=== PATIENT | male | born 1970 | race Caucasian/White ===

== ENCOUNTER 2025-03-17 11:13 | Outpatient (OUT) | payer OTHER, SELFPAY ==
--- OUTSIDE RECORDS SUMMARY | 2025-03-03 20:15 | XMS_ITS | Encounter Summary ---
Author Organization [facility] tem Address [id number] [address] [place] [address] Care Team Providers Care Industrial Electrical Engineer Name Role Phone Jo-Ann Loera MD Primary Care Provider [phone] Reason for Visit * ReasonCommentsWound Check * Auth/Cert (Routine)SpecialtyDiagnoses / ProceduresReferred By ContactReferred To Contact [facility] [address] [place] [address] Phone: tel: fax: Referral IDStatusReasonStart DateExpiration DateVisits RequestedVisits [id number] Encounter Details DateTypeDepartmentCare Team (Latest Contact Info)Pomdggirgxs75/05/2025 8:15 PM EST - 03/03/2025 8:38 PM ESTEmergency [facility] [address] [place] [address] Collin Cevallos, DO [address] [place] [address] [phone] Skin abrasion (Primary Dx) Discharge Disposition: Home Social History Tobacco UseTypesPacks/DayYears UsedDateSmoking Tobacco: NeverSmokeless Tobacco: NeverAlcohol UseStandard Drinks/WeekCommentsYes0 (1 standard drink = 0.6 oz pure alcohol)x3 a weekChildcareAnswerDate JlagitbeFrbsiwoarBrhmcnz65/12/2019 EmploymentAnswerDate VwculhcjUjganvncbwWolmaqa96/12/2019Hunger ScreeningAnswer Date RecordedWithin the past 12 months we worried whether our food would run out before we got money to buy more.Never True03/03/2025Within the past 12 months the food we bought just didn't last and we didn't have money to get more.Never True03/03/2025Purpose - LifeAnswerDate RecordedPurpose and direction in life Lpmrout0104/12/2020ex and Gender InformationValueDate RecordedSex Assigned at XowobFltq00/11/2021 2:00 PM EDTLegal TagSlls1511/02/2014 11:31 AM EDTGender NabfuhfmDpkw39/11/2021 2:00 PM EDTSexual KiaoaxpqserLgphwnqr36/11/2021 2:00 PM EDTdocumented as of this encounter Last Filed Vital Signs Vital SignReadingTime TakenCommentsBlood Rtvuhbql192/ 8:30 PM EST Wyicv686703/03/2025 8:19 PM KBBNkbqyzxesuz06.8 ??C (98.3 ??F)03/03/2025 8:19 PM ESTRespiratory Goiq629105/04/2024 8:19 PM ESTOxygen Inzsvbsbud07%03/03/2025 8:19 PM ESTInhaled Oxygen Concentration--Fuxndr79.4 kg (206 lb)03/03/2025 8:19 PM EST Uuzugo121.3 cm (5' 11 )03/03/2025 8:19 PM ESTBody Mass Index28.7303/03/2025 8:19 PM ESTdocumented in this encounter Functional Status * Vital SignsQuestionAnswerDate of OgjvphmceqXoiuopYK627/7803/03/2025 8:30 PM Clarke Stoddard, MARCELINA * ED Hunger ScreeningQuestionAnswerDate of AssessmentAuthorWithin the past 12 months the food we bought just didn't last and we didn't have money to get more.Never True03/03/2025 8:21 PM Brittany Tilley RNWithin the past 12 months we worried whether our food would run out before we got money to buy more.Never True03/03/2025 8:21 PM Brittany Tilley RN * BEE (kcal)AnswerDate of VcbovgflybVejsev056619/05/2025 8:19 PM Brittany Tilley RN * Pain AssessmentQuestionAnswerDate of AssessmentAuthorPain DescriptorsBurning 03/03/2025 8:19 PM Brittany Tilley RNPain DurationConstant/continuous 03/03/2025 8:19 PM Brittany Tilely RNPain TypeAcute pain03/03/2025 8:19 PM Brittany Tilley RNPain Assessment0-10105/04/2024 8:19 PM Brittany Tilley RN Pain Tyzrp72805/04/2024 8:19 PM Brittany Tilley RN * [place] Coma ScaleQuestionAnswerDate of AssessmentAuthorEye Umeqzke083/05/2025 8:20 PM Brittany Tilley RNBest Motor Wnjnumqk947/05/2025 8:20 PM Brittany Tilley RNBest Verbal Wtrnhmmg493/05/2025 8:20 PM Brittany Tilley RNGlasgow Coma Scale Mmauf4329/05/2025 8:20 PM Brittany Tilley RN * Patient ObservationQuestionAnswerDate of TiolfmtlsxLhwrwqClvpqh0834/05/2025 8:19 PM Brittany Tilley RNWeight329603/03/2025 8:19 PM Brittany Tilley RN * BSA (Calculated - sq m)AnswerDate of AssessmentAuthor2.16105/04/2024 8:19 PM Brittany Tilley RN * BMI (Calculated)AnswerDate of QkzmccsttbFxzwfy05.7105/04/2024 8:19 PM Brittany Tilley RN * Height and WeightQuestionAnswerDate of AssessmentAutLima City Hospitalt MethodStated 03/03/2025 8:19 PM Brittany Tilley RN * Abuse Indicator ScreeningQuestionAnswerDate of AssessmentAuthorSafe in HomeYes 03/03/2025 8:21 PM Brittany Tilley RNDo you feel safe in your relationship(s)?Yes03/03/2025 8:21 PM Brittany Tilley RNAre you in immediate danger?No03/03/2025 8:21 PM Brittany Tilley RN * Harm Risk AssessmentQuestionAnswerDate of AssessmentAuthorAre you having thoughts of homicide or causing harm to others?No03/03/2025 8:21 PM Brittany Tilley RN * Blood HistoryQuestionAnswerDate of AssessmentAuthorHave you had a blood transfusion?No03/03/2025 8:21 PM Brittany Tilley RNWould you accept a blood transfusion in a life-threatening situation?Yes03/03/2025 8:21 PM Brittany Tilley RN * Fall Prevention Screening 18-64 yearsQuestionAnswerDate of AssessmentAuthorIs Patient Alert, Oriented and Able to Follow JjxytijaRoh69/05/2025 8:21 PM Brittany Rand RNInterventionsNonslip Footwear;Bed in Low Position;Call Light Within Reach03/03/2025 8:21 PM Brittany Tilley RNFall Prevention ScreenDoes Not Apply to Patient - Screening Osugbnhf14/05/2025 8:21 PM Brittany Tilley RN * Vital SignsQuestionAnswerDate of KhbbbkoglwXjrnabCfpq13. 8:19 PM Brittany Tilley RNTemp wydKuhk2803/03/2025 8:19 PM Brittany Tilley ESXlgix31 03/03/2025 8:19 PM Brittany Tilley RNResp18105/04/2024 8:19 PM Brittany Tilley DIRbG83047/05/2025 8:19 PM Brittany Tilley RNHeart Rate SourcePulse Ox03/03/2025 8:19 PM Brittany Tilley RNBP LocationLeft arm03/03/2025 8:19 PM ESTLease, Brittany, RNBP EyohpuAejevpzyc23/05/2025 8:19 PM Brittany Tilley RN MAP (mmHg)9703/03/2025 8:19 PM Brittany Tilley RNPatient PositionSitting 03/03/2025 8:19 PM Brittany Tilley RN * Oxygen TherapyQuestionAnswerDate of AssessmentAuthorO2 DeviceNone (Room air) 03/03/2025 8:19 PM Brittany Tilley RN * Adult Sepsis RiskQuestionAnswerDate of AssessmentAuthorSIRS Criteria0 03/03/2025 8:20 PM ESTBackground, ClindocRisk of Sepsis v.21. 8:40 PM ESTBackground, Clindoc * AirwayQuestionAnswerDate of AssessmentAuthorTrachea AssessmentTrachea midline 03/03/2025 8:20 PM Brittany Tilley RNAirwayPatent105/04/2024 8:20 PM Brittany Rand RNInterventions to Clear AirwayNone/Not Nmlwswlvai14/05/2025 8:20 PM Brittany Tilley RNAirway (WDL)X105/04/2024 8:20 PM Brittany Tilley RN * BreathingQuestionAnswerDate of AssessmentAuthorRespiratory PatternRegular 03/03/2025 8:20 PM Brittany Tilley RNChest AssessmentChest expansion lzjqurtqvhn92/05/2025 8:20 PM Brittany Tilley RNBreathing (WDL)X105/04/2024 8:20 PM Brittany Tilley RN * CirculationQuestionAnswerDate of AssessmentAuthorSkin VpnfbWmmo81/05/2025 8:20 PM Brittany Tilley RNCirculation (WDL)X105/04/2024 8:20 PM Brittany Tilley RN * DisabilityQuestionAnswerDate of AssessmentAuthorDisability (WDL)WDL105/04/2024 8:20 PM Brittany Tilley RN * Family/Insole And Outsole Preparer NotifiedQuestionAnswerDate of AssessmentAuthor Family/Insole And Outsole Preparer notified of Emergency Department Admission?Family txchbvh9103/03/2025 8:21 PM Brittany Tilley RN * Weight in (lb) to have BMI = 25AnswerDate of TqntrrojeuEvtzil640.9105/04/2024 8:19 PM Brittany Tilley RN * [place] Suicide BehaviorQuestionAnswerDate of AssessmentAuthor6. Have you ever done anything, started to do anything, or prepared to do anything to end your life?No03/03/2025 8:21 PM Brittany Tilley RN * Suicidal Ideation (Last Month)QuestionAnswerDate of AssessmentAuthor1. In the last month have you wished you were or wished you could go to sleep and not wake up?No03/03/2025 8:21 PM Brittany Tilley RN2. In the last month have you actually had any thoughts of killing yourself?No03/03/2025 8:21 PM Brittany Rand RNAble to assess?Yes03/03/2025 8:21 PM Brittany Tilley RN * Skin Color/ConditionQuestionAnswerDate of AssessmentAuthorSkin IntegrityOther (Comment)03/03/2025 8:25 PM Clarke Stoddard RNSkin Color/Condition (WDL)X 03/03/2025 8:25 PM Clarke Stoddard RN * Vitals TimerQuestionAnswerDate of AssessmentAutrRestart Vitals TimerYes 03/03/2025 8:19 PM Brittany Tilley RN * TB ScreeningQuestionAnswerDate of AssessmentAuthorPatient has prolonged cough? No03/03/2025 8:21 PM Brittany Tilley RNPatient has bloody cough?No03/03/2025 8:21 PM Brittany Tilley RNPatient has fever?No03/03/2025 8:21 PM Brittany Tilley RNPatient has night sweats?No03/03/2025 8:21 PM Brittany Tilley RN Patient has weight loss?No03/03/2025 8:21 PM Brittany Tilley RNPatient has positive PPD?No03/03/2025 8:21 PM Brittany Tilley RN * [place] Suicide Risk LevelAnswerDate of AssessmentAuthorNot at Suicide Risk 03/03/2025 8:21 PM Brittany Tilley RN * Vital SignsQuestionAnswerDate of KizpusznoeFtrhlyXM066/7803/03/2025 8:30 PM Clarke Stoddard RN * BEE (kcal)AnswerDate of WrxsyxppujPgcacy886547/05/2025 8:19 PM Brittany Tilley RN * Patient ObservationQuestionAnswerDate of EqqfbsldtxYofvrnLwbigt0373/05/2025 8:19 PM Brittany Tilley RNWeight329603/03/2025 8:19 PM Brittany Tilley RN * BSA (Calculated - sq m)AnswerDate of AssessmentAuthor2.16105/04/2024 8:19 PM Brittany Tilley RN * BMI (Calculated)AnswerDate of MvvrpiskssRjbojk88.7105/04/2024 8:19 PM Brittany Tilley RN * Height and WeightQuestionAnswerDate of AssessmentAutLima City Hospitalt MethodStated 03/03/2025 8:19 PM Brittany Tilley RN * Vital SignsQuestionAnswerDate of OcwvbwndkhLituncVivr58.312 8:19 PM Brittany Tilley RNTemp pqkMjkf6003/03/2025 8:19 PM Brittany Tilley TVJioki59 03/03/2025 8:19 PM Brittany Tilley RNResp18105/04/2024 8:19 PM Brittany Tilley RNSpO296105/04/2024 8:19 PM Brittany Tilley RNHeart Rate SourcePulse Ox03/03/2025 8:19 PM Brittany Tilley RNBP LocationLeft arm03/03/2025 8:19 PM Brittany Tilley RNBP XgozdhJeeduhnfl40/05/2025 8:19 PM Brittany Tilley RNMAP (mmHg)9703/03/2025 8:19 PM Brittany Tilley RNPatient PositionSitting 03/03/2025 8:19 PM Brittany Tilley RN * Weight in (lb) to have BMI = 25AnswerDate of PsjgirogpcFnxevo678.912 8:19 PM Brittany Tilley RN documented as of this encounter Mental Status * Vital SignsQuestionAnswerEntry AgnnPeeequFB526/7803/03/2025 8:30 PM Clarke Stoddard RN * Pain AssessmentQuestionAnswerEntry DateAuthorPain FabjgtwrziqPdemfmv93/05/2025 8:19 PM Brittany Tilley RNPain DurationConstant/bnxkrsrxqa20/05/2025 8:19 PM Brittany Tilley RNPain Assessment0-10105/04/2024 8:19 PM Brittany Tilley RN Pain Byfmg74605/04/2024 8:19 PM Brittany Tilley RN * [place] Coma ScaleQuestionAnswerEntry DateAuthorEye Jzdhrbh518/05/2025 8:20 PM Brittany Tilley RNBest Motor Pldbnkfg895/05/2025 8:20 PM Brittany Tilley RNBest Verbal Ulkicxks428/05/2025 8:20 PM Brittany Tilley RNGlasgow Coma Scale Nkhdv4495/05/2025 8:20 PM Brittany Tilley RN * Vital SignsQuestionAnswerEntry PuhuGghollNzzq17.312 8:19 PM Brittany Tilley RNTemp zamNbgs5103/03/2025 8:19 PM Brittany Tilley LVXtuer3106/05/2025 8:19 PM Brittany Tilley HQBfjr3434/05/2025 8:19 PM Brittany Tilley, RNSpO2 9603/03/2025 8:19 PM Brittany Tilley RNHeart Rate SourcePulse Ox03/03/2025 8:19 PM Brittany Tilley RNBP LocationLeft arm03/03/2025 8:19 PM Brittany Tilley RNBP VyopyjCusulgbhz64/05/2025 8:19 PM Brittany Tilley RNMAP (mmHg) 9703/03/2025 8:19 PM ESTLease, Brittany, RNPatient RhopvxkzXlbqjqq40/05/2025 8:19 PM Brittany Tilley RN * Oxygen TherapyQuestionAnswerEntry DateAuthorO2 DeviceNone (Room air)03/03/2025 8:19 PM Brittany Tilley RN * BreathingQuestionAnswerEntry DateAuthorRespiratory ZbvmqupLxktbsb25/05/2025 8:20 PM Brittany Tilley RNChest AssessmentChest expansion symmetrical 03/03/2025 8:20 PM Brittany Tilley RN * CirculationQuestionAnswerEntry DateAuthorSkin VnnmvOofb21/05/2025 8:20 PM EST Brittany Garcia RN documented in this encounter Discharge Instructions * Discharge Instructions* Collin Cevallos DO - 03/03/2025 8:30 PM EST Return to ER if symptoms worsen or change * Attachments The following attachments cannot be sent through Care Everywhere. * Taking care of cuts, scrapes, and puncture wounds (Setswana) documented in this encounter Medications at Time of Discharge MedicationSigDispense QuantityRefillsLast FilledStart DateEnd Date ascorbic acid, vitamin C, (VITAMIN C) 1000 mg tablet Take 1 tablet (1,000 mg total) by mouth in the morning. baclofen 5 mg tablet Take 10 mg by mouth nightly.09/12/2021 celecoxib (CeleBREX) 200 mg capsule Take 1 capsule (200 mg total) by mouth in the morning and 1 capsule (200 mg total) before bedtime. lisinopriL (PRINIVIL,ZESTRIL) 20 mg tablet Take 1 tablet (20 mg total) by mouth before bedtime. zwurvzjl-ttlm-EM-calcium &mins (THERAGRAN-M) 9 mg iron-400 mcg tablet Take 1 tablet by mouth in the morning. ocrelizumab (OCREVUS) 30 mg/mL injection Infuse into a venous catheter every 6 (six) months. rosuvastatin (CRESTOR) 10 mg tablet Take 1 tablet (10 mg total) by mouth in the morning. zinc gluconate 50 mg tablet Take 2 tablets (100 mg total) by mouth in the morning. CEPHalexin (KEFLEX) 500 mg capsule Take 1 capsule (500 mg total) by mouth 3 (three) times a day for 10 days. 30 capsule 512/documented as of this encounter ED Notes * Collin Orlando Mart, - 03/03/2025 8:20 PM EST Images from the original note were not included. [facility] - EMERGENCY Pt Name: Benjamin Renteria II Birthdate: 1970 Chief Complaint: Chief Complaint Patient presents with Wound Check History of Present Illness: This is a 55-year-old male who had right shoulder surgery and he took the bandage off of the shoulder wound and now he has irritation from the tape/dressing. Otherwise the patient has been doing pretty well. He does have some loose stools with the GI complaint. Past Medical History: Past Medical History: Diagnosis Date Allergic Cat dander Arthritis Deviated septum First degree AV block Headache Heart murmur as a child Hyperlipidemia Hypertension Inguinal hernia Migraine Cluster idiopathic migraine MS (multiple sclerosis) 11/2020 Multiple sclerosis b/l leg weakness, cramping in right hand Multiple thyroid nodules Subconjunctival hemorrhage Tendonitis Varicella Visual impairment reading glasses Past Surgical History: Past Surgical History: Procedure Laterality Date ARTHROSCOPIC REPAIR ROTATOR CUFF SHOULDER Right 02/28/2025 Performed by Dylan Terrazas Jr., DO at [facility] ARTHROSCOPIC SUBACROMIAL DECOMPRESSION SHOULDER Right 02/28/2025 Performed by Dylan Terrazas Jr., DO at [facility] ARTHROSCOPY REPAIR ROTATOR CUFF SHOULDER Right 08/25/2019 Performed by Dylan Terrazas Jr., DO at [facility] ARTHROSCOPY SHOULDER Right 08/25/2019 Performed by Dylan Terrazas Jr., DO at [facility] COLONOSCOPY [facility] REPAIR HERNIA INGUINAL Left 12/24/2021 Performed by Collin Martínez DO at [facility] EXCISION LESION LOWER EXTREMITY Left 12/24/2021 Performed by Collin Martínez DO at [facility] HERNIA REPAIR HYDROCELECTOMY ASPIRATION LEFT INGUINAL SEROMA Left 04/22/2022 Performed by Collin Martínez DO at [facility] MOLE REMOVAL SEPTOPLASTY SLAP LESION REPAIR SHOULDER Right 08/25/2019 Performed by Dylan Terrazas Jr., DO at [facility] SUBACROMIAL DECOMPRESSION (SAD) ARTHROSCOPY CUFF REPAIR SHOULDER POSSIBLE FLAP Right 08/25/2019 Performed by Dylan Terrazas Jr., DO at [facility] VASECTOMY WISDOM TOOTH EXTRACTION Family History: Family History Problem Relation Age of Onset Cancer Mother melanoma, bile duct, liver Diabetes Mother Heart disease Mother Hypertension Mother Cancer Father bladder Hypertension Father Stroke Maternal Grandmother Heart disease Maternal Grandfather Cancer Paternal Grandmother breast Heart disease Paternal Grandmother Breast cancer Paternal Grandmother Hypertension Paternal Grandfather Stroke Paternal Grandfather Breast cancer Paternal Aunt Colon cancer Maternal Uncle Depression Daughter Social History: Social History Socioeconomic History Marital status: Tobacco Use Smoking status: Never Smokeless tobacco: Never Vaping Use Vaping status: Never Used Substance and Sexual Activity Alcohol use: Yes Comment: x3 a week Drug use: Not Currently Sexual activity: Not Currently Partners: Female Other Topics Concern Caffeine Use Yes Social Drivers of Health Financial Resource Strain: Low Risk (05/31/2023) Received from [facility] Overall Financial Resource Strain (CARDIA) Difficulty of Paying Living Expenses: Not hard at all Food Insecurity: No Food Insecurity (03/03/2025) Hunger Screening Food Insecurity - Worry: Never True Food Insecurity - Inability: Never True Transportation Needs: No Transportation Needs (05/31/2023) Received from [facility] PRAPARE - Transportation Lack of Transportation (Medical): No Lack of Transportation (Non-Medical): No Physical Activity: Insufficiently Active (05/31/2023) Received from [facility] Exercise Vital Sign On average, how many days per week do you engage in moderate to strenuous exercise (like a brisk walk)?: 3 days On average, how many minutes do you engage in exercise at this level?: 30 min Stress: Stress Concern Present (05/31/2023) Received from [facility] [place] [employer] - Occupational Stress Questionnaire Feeling of Stress : To some extent Social Connections: Socially Integrated (05/31/2023) Received from [facility] Social Connection and Isolation Panel In a typical week, how many times do you talk on the phone with family, friends, or neighbors?: Twice a week How often do you get together with friends or relatives?: Twice a week How often do you attend christianity or alevism services?: More than 4 times per year Do you belong to any clubs or organizations such as christianity groups, unions, fraternal or athletic groups, or school groups?: Yes How often do you attend meetings of the clubs or organizations you belong to?: More than 4 times per year Are you , , , , never , or living with a partner?: Interpersonal Safety: Not At Risk (01/09/2023) Received from [facility] Humiliation, Afraid, Rape, and Kick questionnaire Within the last year, have you been afraid of your partner or ex-partner?: No Within the last year, have you been humiliated or emotionally abused in other ways by your partner or ex-partner?: No Within the last year, have you been kicked, hit, slapped, or otherwise physically hurt by your partner or ex-partner?: No Within the last year, have you been raped or forced to have any kind of sexual activity by your partner or ex-partner?: No Housing Instability: Unknown (05/31/2023) Received from [facility] Housing Stability Vital Sign Unable to Pay for Housing in the Last Year: No Unstable Housing in the Last Year: No Review of Systems: Review of Systems Constitutional: Negative. HENT: Negative. Eyes: Negative. Respiratory: Negative for cough, shortness of breath, wheezing and stridor. Cardiovascular: Negative. Negative for chest pain/discomfort, palpitations, leg swelling and syncope. Gastrointestinal: Negative. Endocrine: Negative. Genitourinary: Negative. Musculoskeletal: Negative. Skin: Positive for rash. Allergic/Immunologic: Negative. Neurological: Negative for dizziness, tremors, seizures, syncope, facial asymmetry, speech difficulty, weakness, light-headedness, numbness and headaches. Hematological: Negative. Psychiatric/Behavioral: Negative for agitation, behavioral problems, self-injury and suicidal ideas. Physical Exam: ED Triage Vitals [03/03/252018] Temp Heart Rate Resp BP SpO2 36.8 ??C (98.3 ??F) 81 18 146/78 96 % Temp Source Heart Rate Source Patient Position BP Location FiO2 (%) Oral Pulse Ox Sitting Left arm -- Vitals: 03/03/252018 BP: 146/78 Temp: 36.8 ??C (98.3 ??F) TempSrc: Oral Pulse: 81 Resp: 18 SpO2: 96% MAP (mmHg): 97 Height: 180.3 cm (5' 11 ) Weight: 93.4 kg (206 lb) Physical Exam Vitals reviewed. Constitutional: Appearance: Normal appearance. HENT: Head: Normocephalic and atraumatic. Mouth/Throat: Mouth: Mucous membranes are moist. Eyes: Extraocular Movements: Extraocular movements intact. Cardiovascular: Rate and Rhythm: Normal rate. Pulmonary: Effort: Pulmonary effort is normal. Abdominal: General: Abdomen is flat. Musculoskeletal: General: Normal range of motion. Cervical back: Normal range of motion. Skin: General: Skin is warm. Findings: Erythema and rash present. Comments: Please see image below for details Neurological: General: No focal deficit present. Mental Status: He is alert and oriented to person, place, and time. Psychiatric: Mood and Affect: Mood normal. Behavior: Behavior normal. Thought Content: Thought content normal. Judgment: Judgment normal. Procedure: Procedures Re-evaluation: 8:27 p.m. at this point in time I am going to go ahead and start this patient on an antibiotic havehim eat 1 yogurt twice daily continue with ykdq-upn-kgvqqyq triple antibiotic ointment on the actual wound and follow up with Dr. Terrazas. Medical Decision Making ED Course: Clinical Impressions as of 03/03/252030 Skin abrasion . ED Disposition ED Disposition Discharge Date/Time ThuMar 03, 2025 8:31 PM Comment At the time of discharge, the plan has been discussed with the patient regarding the diagnosis and prognosis. All questions have been answered. Verbal discharge instructions were discussed with the patient. The patient has been advised to follow up w ith their Specialist 3 days. The patient was also instructed to return to the ED if their symptoms change, worsen, new symptoms arise or if they have any additional concerns. Medications Prescribed this Visit Sig CEPHalexin (KEFLEX) 500 mg capsule Take 1 capsule (500 mg total) by mouth 3 (three) times a day for10 days. . Please note that portions of this note were completed with a voice recognition program. Efforts were made to edit the dictations but occasionally words are mis-transcribed. Collin Cevallos, 03/03/252019 Collin Cevallos DO 03/03/252030 documented in this encounter Plan of Treatment Not on file documented as of this encounter Goals GoalPatient Goal TypeAssociated ProblemsRecent ProgressPatient-Stated?Author Autogenerated Goal Care PlanAutogenerated ProblemNoPotEugenie parikhthdocumented as of this encounter Visit Diagnoses Diagnosis Skin abrasion- Primary Abrasion or friction burn of other, multiple, and unspecified sites, without mention of infection documented in this encounter Administered Medications Medication OrderMAR ActionAction DateDoseRateSite CEPHalexin (KEFLEX) capsule 500 mg 500 mg, oral, Once, On Thu03/03/25 at 2028, For 1 dose, Look-alike/sound-alike medication - verify indication for use., Indication: Skin and soft tissue infection Given03/03/2025 8:34 PM HQF357 mgdocumented in this encounter Active and Recently Administered Medications Times are shown in EST.Medication Order// CEPHalexin (KEFLEX) capsule 500 mg (COMPLETED) 500 mg, oral, Once, On Thu03/03/25 at 2028, For 1 dose, Look-alike/sound-alike medication - verify indication for use., Indication: Skin and soft tissue infection * 2033 (Given - Provider: Clarke Muñoz RN) documented in this encounter Additional Health Concerns Active ProblemsNoted DateDiagnosed DateAutogenerated Igczito8202/28/2025documented as of this encounter Care Teams Team MemberRelationshipSpecialtyStart DateEnd Jo-Ann Rosales MD [address] [place] [address] PCP - GeneralFamily Gsdkfjns67/4/23documented as of this encounter
--- OUTSIDE RECORDS SUMMARY | 2025-03-14 10:30 | XMS_ITS | Encounter Summary ---
Author Organization [facility] Address [address] [place] [address] Care Team Providers Care Grants Director Name Role Phone Grzegorz Ahn MD Primary Care Provider [phone] Reason for Referral * Rehabilitation - Outpatient (Routine) - AuthorizedSpecialtyDiagnoses / ProceduresReferred By ContactReferred To ContactPhysical Therapy Diagnoses S/P arthroscopy of right shoulder Procedures [place] OFFICE/OUTPATIENT [facility] 60 MINUTES Lonnie Bragg PA [address] [place] [address] Phone: tel: fax: [facility] [address] [address] Phone: tel: fax: Referral IDStatusReasonStart DateExpiration DateVisits RequestedVisits [id number] Consult and Treat / Reason for Visit * ReasonCommentsPost-op Encounter Details DateTypeDepartmentCare Team (Latest Contact Info)Kgygqdgtdvo96/16/2025 10:30 AM ESTOffice Visit [facility] [address] [place] [address] Lonnie Bragg PA [address] [place] [address] S/P arthroscopy of right shoulder (Primary Dx) Social History Tobacco UseTypesPacks/DayYears UsedDateSmoking Tobacco: NeverPassive Smoke Exposure: PastSmokeless Tobacco: NeverAlcohol UseStandard Drinks/WeekCommentsYes 7 (1 standard drink = 0.6 oz pure alcohol)1-2 drinks 2-4x a month in the past year, Caffeine intake: 1 cup per day coffeeHumiliation, Afraid, Rape, and Kick questionnaireAnswerDate RecordedWithin the last year, have you been afraid of your partner or ex-partner?No01/09/2023Within the last year, have you been humiliated or emotionally abused in other ways by your partner or ex-partner?No 01/09/2023Within the last year, have you been kicked, hit, slapped, or otherwise physically hurt by your partner or ex-partner?No01/09/2023Within the last year, have you been raped or forced to have any kind of sexual activity by your part ner or ex-partner?No01/09/2023Social Connection and Isolation PanelAnswerDate RecordedIn a typical week, how many times do you talk on the phone with family, friends, or neighbors?Twice a week05/31/2023How often do you get together with friends or relatives?Twice a week05/31/2023How often do you attend alevism or islam services?More than 4 times per year05/31/2023o you belong to any clubs or organizations such as alevism groups, unions, fraternal or athletic ines ups, or school groups?Yes05/31/2023How often do you attend meetings of the clubs or organizations you belong to?More than 4 times per year05/31/2023re you , , , , never , or living with a partner? Snmbcyr5705/31/2023UDIT-CAnswerDate RecordedQ1: How often do you have a drink containing alcohol?4 or more times a week05/31/2023Q2: How many drinks containing alcohol do you have on a typical day when you are drinking?1 or 2 05/31/2023Q3: How often do you have six or more drinks on one occasion?Never 05/31/2023Overall Financial Resource Strain (CARDIA)AnswerDate RecordedHow hard is it for you to pay for the very basics like food, housing, medical care, and heating?Not hard at all05/31/2023HQ-2AnswerDate RecordedPatient Health Questionnaire-2 Pylox322[facility] [place] [facility] - Occupational Stress QuestionnaireAnswerDate RecordedDo you feel stress - tense, restless, nervous, or anxious, or unable to sleep at night because yourmind is troubled all the time - these days?To some xbqekb3505/31/2023Exercise Vital Sign AnswerDate RecordedOn average, how many days per week do you engage in moderate to strenuous exercise (like a brisk walk)?3 days05/31/2023On average, how many minutes do you engage in exercise at this level?30 min05/31/2023Hunger Vital SignAnswerDate RecordedWithin the past 12 months, you worried that your food would run out before you got the money to buymore.Never true05/31/2023Within the past 12 months, the food you bought just didn't last and you didn't have money to get more.Never true05/31/2023RAPARE - TransportationAnswerDate RecordedIn the past 12 months, has lack of transportation kept you from medical appointments or from getting medications?No05/31/2023In the past 12 months, has lack of transportation kept you from meetings, work, or from getting things needed for daily living?No05/31/2023Housing Stability Vital SignAnswerDate RecordedIn the last 12 months, was there a time when you were not able to pay the mortgage or rent on time?No05/31/2023Number of Places Lived in the Last Year Not on file05/31/2023In the last 12 months, was there a time when you did not have a steady place to sleep or slept in ashelter (including now)?No05/31/2023 Sex and Gender InformationValueDate RecordedSex Assigned at BirthNot on file Legal YqrMyit0606/11/2022 6:49 PM EDTGender IdentityNot on fileSexual Orientation Not on filedocumented as of this encounter Patient Instructions * Patient Instructions* DENISE Arellano - 03/14/2025 10:30 AM EST Discussed patient being 2 wks s/p Rotator cuff surgery: surgery discussed at bedside. Continue in sling until follow up to protect repair. ( 6 wks post op) May remove sling to shower and change clothing. Also remove sling 2- 3 times a day to continue home exercises for hand, wrist and elbow range of motion. No weight in operative arm. No lifting anything heavier than coffee cup. Referral for Therapy given/sent electronically, please call Therapy facility to schedule as soon aspossible documented in this encounter Progress Notes * DENISE Arellano - 03/14/2025 10:30 AM EST Images from the original note were not included. Orthopedic Office note: NAME: Benjamin Renteria : 1970 1ST PO S/P RT SHOULDER SCOPE 02/28/25 (2 WKS) @ [facility]. WENT TO [facility] ER 03/03 DUE TO SKIN IRRITATION. WEARING ULTRA SLING. NOT SORE UNLESS YOU TOUCH IT. STATES SKIN ABRASION AND IRRITATION HAS RESOLVED. HAS NOT USED CORTISONE CREAM IN THE LAST 2 DAYS. NO PAIN MEDS THE LAST COUPLE DAYS. +ICE. DENIES N/T. WAKES AT HS. DENIES DRAINAGE. STITCHES INTACT, REMOVED TODAY. INCISIONS HEALING WELL. Right Shoulder Exam Tenderness The patient is experiencing no tenderness (compartments soft). Range of Motion Right shoulder passive abduction: gentle pendulums easily. Muscle Strength Right shoulder normal muscle strength: Fires deltoid and rotator cuff, pendulums easily. Other Erythema: absent (skin peeling outlining prior tape. no s/s of infection.. + dry skin and faint erythemal lateral abdominal wall, nontender. no petechiae.) Scars: present (Portals well healing, sutures removed, no erythema, drainge or discharge, no dehisence) Sensation: normal Pulse: present Comments: The operative upper extremity was noted to be neurovascularly unchanged. Sensation to light touch was intact to all dermatomes to operative upper extremity. Radial and ulnar pulses were present and equal bilaterally. Patient was able to motor elbow wrist and fingers in all anatomic planeswith 5 out of 5 strength on the operative upper extremity. Compartments were soft to operative upper extremity. There was no evidence of infection or ascending lymphangitis to operative extremity. Orders Placed This Encounter Procedures Ambulatory referral to Physical Therapy Standing Status: Future Expected Date: 03/14/2025 Expiration Date: 09/12/2025 Referral Priority: Routine Referral Type: Consultation Referral Reason: Consult and Treat Referral Location: [facility] Requested Specialty: Physical Therapy Number of Visits Requested: 1 Procedures Results ICD-10-CM 1. S/P arthroscopy of right shoulder Z98.890 Ambulatory referral to Physical Therapy CANCELED: Ambulatory referral to Physical Therapy S/p rotator cuff repair Assessment & Plan Post-operative status following right shoulder rotator cuff surgery He is demonstrating satisfactory progress post-surgery. The skin reaction is likely due to the adhesive on the tape, but the cause of the reaction along his waistband, where the abduction pillow was in contact, remains undetermined. His symptoms are generally on an upward trend, with no indicationsof infection. Treatment plan: Physical therapy has been recommended, focusing solely on passive range of motion exercises. He has been advised against active range of motion, strengthening, or resistance exercises. He has expressed understanding of the ongoing restrictions necessary for optimal healing. Follow-up: The patient will follow up in 4 weeks for reevaluation and likely discontinuation of thesling at that time. PROCEDURE Procedure Performed Right shoulder rotator cuff surgery. Questions answered in laymen terms at the bedside. The diagnosis, home exercise plan and any ongoing restrictions/ recommendations reviewed. If unable to be reached in office, I recommend evaluation at nearest Emergency Room if any symptoms worsened or new symptoms develop for requiring urgent evaluation. Visit was preformed using [employer] Co-it risk analyst speech recognition. documented in this encounter Plan of Treatment DateTypeDepartmentCare Team (Latest Contact Info)Qzkndkvwkcs62/13/2026 1:15 PM ESTOffice Visit [facility] [address] [place] [address] Lonnie Bragg PA [address] [place] [address] 12/28/2025 8:00 AM EDTOffice Visit [facility] [address] [facility] [address] [place] [place] [address] Amanda Jaimes NP [address] [facility] [address] [place] [address] NameTypePriorityAssociated DiagnosesOrder ScheduleAmbulatory referral to Physical TherapyOutpatient ReferralRoutine S/P arthroscopy of right shoulder Expected: 03/14/2025 (Approximate), Expires: 09/12/2025documented as of this encounter Visit Diagnoses Diagnosis S/P arthroscopy of right shoulder- Primary documented in this encounter Additional Health Concerns AssessmentNoted TimePHQ-9 Depression Total Score: 8:24 AM EDT documented as of this encounter Care Teams Team MemberRelationshipSpecialtyStart DateEnd Date Grzegorz Ahn MD [address] [facility] [address] [place] [address] PCP - GeneralFamily Medicine12/01/24documented as of this encounter
--- OUTSIDE RECORDS SUMMARY | 2025-03-17 11:23 | XMS_ITS | Encounter Summary ---
Author Organization [facility] Address [address] [place] [address] Care Team Providers Care Freight Service Inspector Name Role Phone Grzegorz Ahn MD Primary Care Provider [phone] Encounter Details DateTypeDepartmentCare Team (Latest Contact Info)Unwkkdeewlr82/16/2025Travel Social History Tobacco UseTypesPacks/DayYears UsedDateSmoking Tobacco: NeverPassive [...] relatives?Twice a week05/31/2023How often do you attend congregational or amish services?More than 4 times per year05/31/2023o you belong to any clubs or organizations such as congregational groups, unions, fraternal or athletic ines ups, or school groups?Yes05/31/2023How often do you attend meetings of the clubs or organizations you belong to?More than 4 times per year05/31/2023re you , , , , never , or living with a partner? Subbrdq2205/31/2023UDIT-CAnswerDate RecordedQ1: How often do you have a [...] heating?Not hard at all05/31/2023HQ-2AnswerDate RecordedPatient Health Questionnaire-2 Hdjhc346[facility] [place] [facility] - Occupational Stress QuestionnaireAnswerDate RecordedDo you feel stress - tense, restless, nervous, or anxious, or unable to sleep at night because yourmind is troubled all the time - these days?To some qqtzwn6005/31/2023Exercise Vital Sign AnswerDate RecordedOn average, how many [...] RecordedSex Assigned at BirthNot on file Legal CzvPfja9906/11/2022 6:49 PM EDTGender IdentityNot on fileSexual Orientation Not on filedocumented as of this encounter Plan of Treatment DateTypeDepartmentCare Team (Latest Contact Info)Wrsnxbqdobd29/13/2026 1:15 PM ESTOffice Visit [facility] [address] [place] [phone] Lonnie Bragg PA [address] [place] [phone] 12/28/2025 8:00 AM EDTOffice Visit [facility] [address] [place] [phone] Amanda Jaimes NP [address] [place] [address] documented as of this encounter Visit Diagnoses Not on filedocumented in this encounter Additional Health Concerns AssessmentNoted TimePHQ-9 Depression Total Score: 8:24 AM EDT documented as of this encounter Care Teams Team MemberRelationshipSpecialtyStart DateEnd Date Grzegorz Ahn MD [address] [place] [address] PCP - GeneralFamily Medicine12/01/24documented as of this encounter
--- OUTSIDE RECORDS SUMMARY | 2025-03-17 11:23 | XMS_ITS | Clinical Summary ---
Author Organization [facility] Address [address] [place] [address] Care Team Providers Care Planogrammer Name Role Phone Jo-Ann Loera MD Unavailable [phone] Jo-Ann Loera MD Primary Care Provider [phone] Allergies Active AllergyReactionsCriticalityNoted DateCommentsCat DanderOther: See AcfjirndGvplnu51/09/2021 Itchy eyes, sneezing Pneumococcal McpflacPxomksux89/28/2022 Medications * This document contains information received from the source organization and may not represent a complete record from that organization. MedicationSigDispense QuantityRefillsLast FilledStart DateEnd DateStatus atorvastatin (LIPITOR) 20 mg tablet Take 20 mg by mouth once daily. Active lisinopril (ZESTRIL, PRINIVIL) 20 mg tablet Take 20 mg by mouth once daily. Active Ascorbic Acid 1,000 mg tablet Take 1,000 mg by mouth once daily. Active MULTI-VITAMIN HI-PO ORAL Take 1 tablet by mouth once daily. Active zinc sulfate (ZINC-15 ORAL) Take 1 tablet by mouth once daily. Active ocrelizumab (OCREVUS INTRAVENOUS) Inject intravenously once every 6 months.Active baclofen 5 mg tablet Indications:Spasm of muscleTAKE 1 TABLET AT DINNER AND 1 TABLET AT BEDTIME 180 tablet 5Active Active Problems ProblemNoted DateDiagnosed DateFirst degree AV block2021Thyroid nodule 12/11/2020Multiple sclerosisMixed hyperlipidemiaPrimary hypertension Encounters DateTypeDepartmentCare UvnfTrdlcofwnrv61/08/2025[facility] Medical Advice [address] [address] Iam Lee MD, PhD Rescheduled vbnbieym74/04/2025Orders Only [place] [phone] Maine Christie PA-C Multiple sclerosis (Primary Dx)02/16/2025Orders Only [address] [address] Maine Christie PA-C 02/08/2025 Get Medical Advice [place] [phone] Iam Lee MD, PhD Ijnrzrye84/28/2025Refill [place] [phone] Maine Christie PA-C Refill Requestfrom Last 3 Months Immunizations ImmunizationAdministration DatesNext DueCOVID-19 original vaccine, full dose, monovalent (MODERNA)06/02/2020,05/05/2020 Family History Medical HistoryRelationCommentsMultiple SclerosisSisterRelationStatusComments Sister Social History Tobacco UseTypesPacks/DayYears UsedDateSmoking Tobacco: NeverSmokeless Tobacco: Never Tobacco Cessation:Counseling Given: Not Answered Alcohol UseStandard Drinks/WeekCommentsYes3.6 (1 standard drink = 0.6 oz pure alcohol)PHQ-2AnswerDate RecordedPHQ-2 dwhia6945Area Deprivation Index AnswerDate RecordedNational Score (1-100), lower number is lower risk76 12/04/2022State Score (1-10), lower number is lower pikn7073Data from: https://www.neighborhoodatlas.medicine.[facility].edu/. Last address used for wpldvtrwabk6781 [facility] 6 E012/04/2022Sex and Gender InformationValueDate RecordedSex Assigned at VfnwmByfc29/04/2021 7:45 PM EDTLegal FjxKmkv0504/26/2020 5:02 PM ESTGender AtikzngcGpte51/04/2021 7:45 PM EDTSexual OrientationStraight 07/31/2020 7:45 PM EDT Last Filed Vital Signs Vital SignReadingTime TakenCommentsBlood Hivbxaec224/7409/06/2024 1:50 PM EDT Ytvft378109/06/2024 1:50 PM PUIJajvehswzjr72.1 ??C (95.2 ??F)09/06/2024 12:00 PM EDTRespiratory Lunk7251 12:30 PM ESTOxygen Saturation--Inhaled Oxygen Concentration--Thdfuf03.3 kg (210 lb)09/06/2024 1:50 PM SPHGadxbq584.3 cm (5' 11 )09/06/2024 1:50 PM EDTBody Mass Index29.29009/06/2024 1:50 PM EDT Plan of Treatment DateTypeDepartmentCare Team (Latest Contact Info)Trpxudpvjvw99/12/2026 8:00 AM ESTInfusion Center Multiple Sclerosis [address] [place] [address] OCREVUS (6 Month)04/10/2025 12:00 PM ESTOffice Visit [facility] [address] [phone] Jessica Armendariz, Research Coordinator DELIVER-MS Month 48 Visit04/10/2025 2:00 PM ESTAppointment Radiology [address] [place], [place] [phone] MRI BRAIN WO IVCON04/10/2025 2:40 PM ESTAppointment Radiology [address] [place], [place] [phone] MRI THORACIC SPINE WO IVCON04/11/2025 3:15 PM ESTDistance [address] [address] Maine Christie PA-C [address] [place] [address] f/uHealth MaintenanceDue DateLast DoneCommentsAnnual PCP Team Chronic Disease Visit1989Anxiety Dmkyevpfq79/17/1989Depression Smqubyrja11/17/1989CT Jdxgssskfncl33/17/2016Cologuard (FIT-DNA)02/14/20163174Zxhsqbbkxdv71/17/2016 Colorectal Cancer Tislmeozd64/17/2016Fecal Occult Blood02/14/2016Sigmoidoscopy 02/14/2016Shingrix Vaccine (1 of 2)2021neumococcal Vaccine: 50+ (2 of 2 - PCV)/ovid-19 Vaccine (5 - season)2024 01/17/2022, 01/23/2021, 06/02/2020, Additional history existsInfluenza Vaccine (#1)/04/2023, 01/31/2023, 01/10/2022, Additional history existsLipid Rqycvdppa48/19/626306/2Diabetes Imntaapor05/12/2024, 03/08/2024, 02/24/2023, Additional history existsDTaP,Tdap,Td Vaccine (7 - Td or Tdap) /06/2022, 01/13/2019, 01/13/2019, Additional history existsRSV Vaccine (1 - 1-dose 75+ series)2046Hepatitis B QrixiryTbnwufatr65/07/2015, 12/03/2013, 10/30/2013HIV ApfwltbuoAltproudu34/01/2021Hepatitis C Screening Ucjgsruxz48/19/2022, 11/28/2020 Procedures Procedure NamePriorityDate/TimeAssociated DiagnosisCommentsCOMPREHENSIVE METABOLIC ITDPFJptwtmp02/10/2025 7:24 AM EDT Multiple sclerosis (HCC) HIV 1/2 COMBO WITH REFLEX TO FKFDLKZXZXMTKRMGrniirb14/01/2021 12:55 PM EDT Demyelinating disease of central nervous system (HCC) HEPATITIS C ANTIBODY IA WITH TFBJHHKRSTOIHyxgalo05/01/2021 12:55 PM EDT Multiple sclerosis (HCC) Demyelinating disease of central nervous system (HCC) from Last 3 Months or Most Recently Relevant to Health Maintenance Results * (ABNORMAL) COMPREHENSIVE METABOLIC PANEL (09/06/2024 7:24 AM EDT)Component ValueRef RangeTest MethodAnalysis TimePerformed AtPathologist Signature Protein, Total7.06.3 - 8.0 g/dL09/06/2024 3:02 PM [facility] LABAlbumin4.93.9 - 4.9 g/dL09/06/2024 3:02 PM [facility] LABCalcium, Total9.68.5 - 10.2 mg/dL09/06/2024 3:02 PM [facility] LABBilirubin, Total0.60.2 - 1.3 mg/dL09/06/2024 3:02 PM EDT [facility] LABAlkaline Ronyfjbkndl9177 - 113 U/L09/06/2024 3:02 PM [facility] FXQVYA65(H)14 - 40 U/L09/06/2024 3:02 PM [facility] LABComment:Results may be falsely increased due to interference from hemolysis. Suggest reorder as clinically indicated. AVY678(H)10 - 54 U/L09/06/2024 3:02 PM [facility] Svfprrh3902 - 99 mg/dL09/06/2024 3:02 PM [facility] Comment: The [place] Diabetes Association (ADA) provides guidance for cutoff values for fasting glucose andrandom glucose. The ADA defines fasting as no caloric intake for at least 8 hours. Fasting plasma glucose results between 100 to 125 mg/dL indicate increased risk for diabetes (prediabetes). Fasting plasma glucose results greater than or equal to 126 mg/dL meet the criteria for diagnosis of diabetes. In the absence of unequivocal hyperglycemia, results should be confirmed by repeat testing. In a patient with classic symptoms of hyperglycemia or hyperglycemic crisis, random plasma glucose results greater than or equal to 200 mg/dL meet the criteria for diagnosis of diabetes. Reference: Standards of Medical Care in Diabetes 2016, [place] Diabetes Association. Diabetes Care. 2016.39(Suppl 1). FRQ573 - 24 mg/dL09/06/2024 3:02 PM [facility] Creatinine0.880.73 - 1.22 mg/dL09/06/2024 3:02 PM [facility] SJJJglrkj364994 - 144 mmol/L09/06/2024 3:02 PM [facility] LABPotassium4.73.7 - 5.1 mmol/L09/06/2024 3:02 PM [facility] MZJIiwuyblt04134 - 107 mmol/L09/06/2024 3:02 PM [facility] MOFKR513(L)22 - 30 mmol/L09/06/2024 3:02 PM [facility] LABAnion Dsy911 - 15 mmol/L09/06/2024 3:02 PM [facility] LABEstimated Glomerular Filtration Pxxc949>=60 mL/min/1.73m 09/06/2024 3:02 PM [facility] LABComment:Estimated Glomerular Filtration Rate (eGFR) is calculated using the 2020 CKD-EPI creatinine equation. This equation utilizes serum creatinine, sex, and age as parameters. The creatinine assay has traceable calibration to isotope dilution- mass spectrometry. Refer to KDIGO guidelines for clinical interpretation. In patients with unstable renal function, e.g. those with acute kidney injury, the eGFRmay not accurately reflect actual GFR.Specimen (Source)Anatomical Location / LateralityCollection Method / VolumeCollection TimeReceived TimeBloodBLOOD SPECIMEN / UnknownVenipuncture / Fbfoami9009/06/2024 7:24 AM EDT09/06/2024 1:25 PM EDT Narrative Authorizing ProviderResult TypeResult StatusHilasherrill GOODWINCLABORATORYFinal ResultPerforming OrganizationAddressCity/State/ZIP CodePhone Number [facility] [address] [place] [address], * HIV 1 2 COMBO(AG/AB),WITH REFLEX TO DIFFERENTIATION (11/28/2020 12:55 PM EDT) ComponentValueRef RangeTest MethodAnalysis TimePerformed AtPathologist SignatureHIV 12 Combo (Ag/Ab)Non ReactiveNon Kxatiele08/01/2021 9:20 PM EDT [facility] LaboratoriesHIV 1/2 Ab ConfirmatoryTest Not Indicated 11/28/2020 9:20 PM [facility] LaboratoriesHIV InterpretationNegative 11/28/2020 9:20 PM [facility] LaboratoriesComment: No evidence of HIV-1 or HIV-2 infection. Should recent infection be suspected, repeat testing may be considered 2-3 weeks after this draw. HIV Information: [place] Rev. Code 3701.243(E): This information has been disclosed to you from confidential records protected from disclosure by state law. ??You shall make no further disclosure of this information without the specific, written, and informed release of the individual to whom it pertains or as otherwise permitted by state law. A general authorization for the release of medical or other information is not sufficient for the purpose of the release of HIV test results or diagnoses. Specimen (Source)Anatomical Location / LateralityCollection Method / Volume Collection TimeReceived TimeBloodBLOOD SPECIMEN / Yxubxkg6911/28/2020 12:55 PM EDT 11/28/2020 12:57 PM EDT Narrative Authorizing ProviderResult TypeResult StatusMelody Domingo MDLABORATORYFinal ResultPerforming OrganizationAddressCity/State/ZIP CodePhone Number [facility] [address] [place] [address] [facility] [address] [place] [address] * HEP C AB IA W/CONF SCRN (11/28/2020 12:55 PM EDT)ComponentValueRef RangeTest MethodAnalysis TimePerformed AtPathologist SignatureHep C Antibody IANegative Uzilgltg00/01/2021 9:19 PM EDTCMary Rutan Hospital LaboratoriesSpecimen (Source) Anatomical Location / LateralityCollection Method / VolumeCollection Time Received TimeBloodBLOOD SPECIMEN / Bgnqfsv3311/28/2020 12:55 PM EDT11/28/2020 12:57 PM EDT Narrative Authorizing ProviderResult TypeResult StatusMelody Domingo MDLABORATORYFinal ResultPerforming OrganizationAddressCity/State/ZIP CodePhone Number [facility] [address] [place] [address] [facility] [address] [place] [address] from Last 3 Months or Most Recently Relevant to Health Maintenance Insurance * Guarantor: Benjamin RenteriaAccount TypeRelation to PatientDate of BirthPhone Billing AddressPersonal/KklvlxEcuz1970 [facility] [address] Care Teams Team MemberRelationsSanta Marta HospitalpecialtyStart DateEnd Date Jo-Ann Loera MD PCP - [facility] Hmrmwjhc12/7/21 Jo-Ann Loera MD [facility]04/26/20
--- OUTSIDE RECORDS SUMMARY | 2025-03-17 11:23 | XMS_ITS | Encounter Summary ---
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 Role Phone Grzegorz Ahn MD Primary Care Provider [phone] Encounter Details DateTypeDepartmentCare Team (Latest Contact Info)Zeuhibkhoec35/15/2025Travel Social History Tobacco UseTypesPacks/DayYears UsedDateSmoking Tobacco: NeverPassive [...] relatives?Twice a week05/31/2023How often do you attend uatsdin or yazidism services?More than 4 times per year05/31/2023o you belong to any clubs or organizations such as uatsdin groups, unions, fraternal or athletic ines ups, or school groups?Yes05/31/2023How often do you attend meetings of the clubs or organizations you belong to?More than 4 times per year05/31/2023re you , , , , never , or living with a partner? Pornkyq1005/31/2023UDIT-CAnswerDate RecordedQ1: How often do you have a [...] heating?Not hard at all05/31/2023HQ-2AnswerDate RecordedPatient Health Questionnaire-2 Fbypz403[facility] [place] of Occupational Health - Occupational Stress QuestionnaireAnswerDate RecordedDo you feel stress - tense, restless, nervous, or anxious, or unable to sleep at night because yourmind is troubled all the time - these days?To some ejncvt3605/31/2023Exercise Vital Sign AnswerDate RecordedOn average, how many [...] RecordedSex Assigned at BirthNot on file Legal YcnScdy5806/11/2022 6:49 PM EDTGender IdentityNot on fileSexual Orientation Not on filedocumented as of this encounter Plan of Treatment DateTypeDepartmentCare Team (Latest Contact Info)Hmzqmsetofc47/13/2026 1:15 PM ESTOffice Visit [facility] [address] [place] [phone] Lonnie Bragg PA [address] [place] [phone] 12/28/2025 8:00 AM EDTOffice Visit [facility] [address] [place] [phone] Amanda Jaimes NP [address] [place] [address] documented as of this encounter Visit Diagnoses Not on filedocumented in this encounter Additional Health Concerns AssessmentNoted TimePHQ-9 Depression Total Score: 8:24 AM EDT documented as of this encounter Care Teams Team MemberRelationshipSpecialtyStart DateEnd Date Grzegorz Ahn MD [address] [place] [address] PCP - GeneralFamily Medicine12/01/24documented as of this encounter
--- OUTSIDE RECORDS SUMMARY | 2025-03-17 11:23 | XMS_ITS | Clinical Summary ---
Author Organization [employer] tem Address [id number] [address] [place] [address] Care Team Providers Care Service Associate Name Role Phone Jo-Ann Loera MD Primary Care Provider [phone] Allergies Active AllergyReactionsCriticalityNoted DateCommentsCat Topavi1708/11/2019 Pneumococcal 23-Kae Ps VaccineNausea And Haoutfmh50/28/2022 Medications MedicationSigDispense QuantityRefillsLast FilledStart DateEnd DateStatus lisinopriL (PRINIVIL,ZESTRIL) 20 mg tablet Take 1 tablet (20 mg total) by mouth before bedtime.Active ascorbic acid, vitamin C, (VITAMIN C) 1000 mg tablet Take 1 tablet (1,000 mg total) by mouth in the morning.Active jfnhrxht-xrih-IG-calcium &mins (THERAGRAN-M) 9 mg iron-400 mcg tablet Take 1 tablet by mouth in the morning.Active zinc gluconate 50 mg tablet Take 2 tablets (100 mg total) by mouth in the morning.Active baclofen 5 mg tablet Take 10 mg by mouth nightly.2Active ocrelizumab (OCREVUS) 30 mg/mL injection Infuse into a venous catheter every 6 (six) months.Active rosuvastatin (CRESTOR) 10 mg tablet Take 1 tablet (10 mg total) by mouth in the morning.Active celecoxib (CeleBREX) 200 mg capsule Take 1 capsule (200 mg total) by mouth in the morning and 1 capsule (200 mg total) before bedtime.Active CEPHalexin (KEFLEX) 500 mg capsule Take 1 capsule (500 mg total) by mouth 3 (three) times a day for 10 days. 30 capsule 5105/14/2024Expired Active Problems ProblemNoted DateDiagnosed NeugZrkgejcy28/14/2022 Overview (02/10/2022): Cat dander Deviated upqkfs6202/10/20222053Ibqylwau81/14/2022Heart gsjrjz2604/12/2021 Overview (02/10/2022): as a child [place]12/14/2022 Overview (02/10/2022): Cluster idiopathic migraine Subconjunctival jhaefxgqwe23/14/2022 Overview (02/10/2022): b/l leg weakness, cramping in right hand Ibwhcdgzcj18/14/3986Boziwbijh28/14/2022Visual zfugpekgyp41/14/2022 Overview (02/10/2022): reading glasses First degree AV block2021bnormal EKG104/15/2020ow HDL (under 40) 2021levated AST (SGOT) 47 as of Septemberlevated ALT measurement 58 as of SeptemberThyroid uvothm5412/11/2020MS (multiple sclerosis)11/28/2020 Overview (04/02/2022): b/l leg weakness, cramping in right hand Benign essential HTN03/07/2020Mixed aozjsmuhbghdkw06/09/2020Episodic bdpyigsruqpelvl44/09/2020 Encounters DateTypeDepartmentCare ZsavVpzlqydpzbm85/05/2025 8:15 PM EST - 03/03/2025 8:38 PM ESTEmergency [facility] [address] [place] [address] Collin Cevallos, DO Skin abrasion (Primary Dx) Discharge Disposition: Home03/03/20256931Fawtnq78/02/2025 12:36 PM ESTAnesthesia Event [facility] - Surgery [address] [place] [address] Lawson Taylor MD 02/28/2025 12:30 PM EST - 02/28/2025 2:30 PM ESTSurgery [facility] [address] [place] [address] Dylan Terrazas Jr., DO ARTHROSCOPIC SUBACROMIAL DECOMPRESSION SHOULDER [81969 (CPT??)]02/28/2025 10:27 AM EST - 02/28/2025 3:49 PM ESTHospital Encounter [facility] - Surgery [address] [place] [address] Dylan Terrazas Jr., DO Acute pain of right shoulder (Primary Dx) Discharge Disposition: Home02/28/20255613Ifmamu85/13/2025 1:42 PM EST - 02/09/2025 11:59 PM ESTHospital Encounter [facility] - Cardiovascular [address] [place] [address] Dylan Terrazas Jr., DO Benign essential HTN; First degree AV block; Preop examination Discharge Disposition: Home02/09/2025 1:30 PM ESTProcedure visit [facility] - Pre Admit [address] [place] [address] Benign essential HTN (Primary Dx); First degree AV block; MS (multiple sclerosis); Preop lxmutllhceu62/13/2025Travelfrom Last 3 Months Immunizations ImmunizationAdministration DatesNext DueCOVID-19, mRNA, LNP-S, PF, 100mcg/0.5mL Dose06/02/2020,05/05/2020Tdap1 Family History Medical HistoryRelationNameCommentsDepressionDaughterRebeccwCancerFatherDick bladderHypertensionFatherDickHeart diseaseMaternal GrandfatherFredaStroke Maternal GrandmotherFredaColon cancerMaternal UncleDavidCancerMotherDianne melanoma, bile duct, liverDiabetesMotherDianneHeart diseaseMotherDianne HypertensionMotherDianneBreast cancerPaternal AuntGwenHypertensionPaternal GrandfatherSidStrokePaternal GrandfatherSidBreast cancerPaternal Grandmother AgnesCancerPaternal GrandmotherAgnesbreastHeart diseasePaternal GrandmotherAgnes RelationNameStatusCommentsDaughterRebeccwFatherDickAliveMaternal Grandfather FredaDeceasedMaternal GrandmotherFredaAliveMaternal UncleDavidMotherDianne DeceasedPaternal AuntGwenPaternal GrandfatherSidDeceasedPaternal Grandmother AgnesDeceased Social History Tobacco UseTypesPacks/DayYears UsedDateSmoking Tobacco: NeverSmokeless Tobacco: Never Tobacco Cessation:Counseling Given: Not Answered Alcohol UseStandard Drinks/WeekCommentsYes0 (1 standard drink = 0.6 oz pure alcohol)x3 a weekChildcareAnswerDate OeyvcbhhJfbxzstprEhtjial89/12/2019 EmploymentAnswerDate JqzrbqduFrmidcpfrdKvuxewi13/12/2019Hunger ScreeningAnswer Date RecordedWithin the past 12 months we worried whether our food would run out before we got money to buy more.Never True03/03/2025Within the past 12 months the food we bought just didn't last and we didn't have money to get more.Never True03/03/2025Purpose - LifeAnswerDate RecordedPurpose and direction in life Oornqoe3204/12/2020ex and Gender InformationValueDate RecordedSex Assigned at YwnirVazh14/11/2021 2:00 PM EDTLegal JvbFlao0911/02/2014 11:31 AM EDTGender JvydwdazMdmo19/11/2021 2:00 PM EDTSexual WoryrfuqqsmIsqynahk38/11/2021 2:00 PM EDT Last Filed Vital Signs Vital SignReadingTime TakenCommentsBlood Cnwkvmte820/7803/03/2025 8:30 PM EST Hklbt195403/03/2025 8:19 PM DHOAcoiniwibrb99.8 ??C (98.3 ??F)03/03/2025 8:19 PM ESTRespiratory Kucx376105/04/2024 8:19 PM ESTOxygen Ntzjisljfu84%03/03/2025 8:19 PM ESTInhaled Oxygen Concentration--Upybbk29.4 kg (206 lb)03/03/2025 8:19 PM EST Cuzynk806.3 cm (5' 11 )03/03/2025 8:19 PM ESTBody Mass Index28.7303/03/2025 8:19 PM EST Plan of Treatment Health MaintenanceDue DateLast DoneCommentsDepression Bkabojluj28/17/1983Adult BMI Follow Up Plan1989Zoster (Shingles) Vaccine (1 of 2)1990COVID-19 Vaccine ( season)/, 01/23/2021, 06/02/2020, Additional history existsInfluenza Gcafjii32/04/2023, 01/31/2023, 01/10/2022, Additional history existsAdult BMI Ulqilbmxd89/07/2024 Tobacco Zooaxncww22/07/2024DTaP,Tdap and Td Vaccines (7 - Td or Tdap) /06/2022, 01/13/2019, 01/13/2019, Additional history exists Goals GoalPatient Goal TypeAssociated ProblemsRecent ProgressPatient-Stated?Author Autogenerated Goal Care PlanAutogenerated ProblemNoPotts, [employer] ImplantedTypeAreaManufacturerDevice IdentifierShelf Expiration DateModel / Serial / LotAnchor Sut 4.75mm Bio-Swivelock C Cls Eylt Vnt 19.1mm Strl Ea=Bill- Only Rpl [id number] - Sna - [id number] Implanted:Qty: 1 on 02/28/2025 by Dylan Terrazas Jr., DO at [facility]: CbhimkcfKnbqair75/31/[id number] / NA / [id number] Progrip Srg - Sna - [id number] Implanted:Qty: 1 on 12/24/2021 by Collin Mart[facility]nez, DO [facility]eshLeft: AbdomenMEDTRONIC USA08/28/[id number] / NA / [id number] Sut Arthx Fibertak Strl - Douglas-3638 - [id number] Implanted:Qty: 1 on 08/25/2019 by yDlan [facility]as Jr[facility]Right: WcmztmmuQlzayqc41/30/2024R-3638 / AR-3638 / [id number] Implanted:Qty: 1 on 08/25/2019 by [facility]as Jr[facility]: QygwkcfxHpzthfj35/31/[id number]-2 / [id number] / [id number] Procedures Procedure NamePriorityDate/TimeAssociated DiagnosisCommentsCHG SONO GUIDE NEEDLE HRGVOXSynmahu87/03/2025 4:08 PM EST NV INJECTION AA&/STRD BRACHIAL PLEXUS W/IMG PXKOrhwkyc08/03/2025 4:08 PM EST ANESTHESIA PERIPHERAL LRHKRZnyrzwi10/03/2025 4:08 PM EST ANESTHESIA FAFLQJJZLOOiqjlsm02/02/2025 12:45 PM EST NV SHLDR ARTHROSCOP,SURG,W/ROTAT CUFF REPR02/28/2025 12:42 PM EST right shoulder internal derangement NV SHLDR ARTHROSCOP,PART VPIZWLZTNXB20/02/2025 12:42 PM EST right shoulder internal derangement BEDSIDE CECRLOHBtetqwu03/02/2025 11:16 AM EST BASIC METABOLIC UYVFKZzvoowc51/13/2025 2:14 PM EST Benign essential HTN First degree AV block Preop examination ECG 12-OXEWSgnttjl61/13/2025 2:08 PM EST Benign essential HTN First degree AV block Preop examination from Last 3 Months Results * PM PERIPHERAL BLOCK, NV INJECTION AA&/STRD BRACHIAL PLEXUS W/IMG GDN, CHG SONO GUIDE NEEDLE BIOPSY (03/01/2025 4:08 PM EST) Narrative Lawson Taylor MD - 03/01/2025 4:08 PM EST Lawson Taylor MD 03/01/2025 4:09 PM Peripheral Block Patient Location: ??Pre-op Start Time: ??03/01/2025 12:22 PM End Time: ??03/01/2025 12:24 PM Reason for Block: Surgical/Post-op Pain Management and At Surgeon's Request ?? IV In situ: Peripheral General Information and Staff: Service Provider: ??Lawson Taylor MD Placed by: Lawson Taylor MD Checklist: Patient Identified, IV Checked, Site Marked, Risks and Benefits Discussed, Surgical Consent, Monitors and Equipment Checked, Pre-op Evaluation and Timeout Performed Fire Risk Assessment Score: 1 Positioning and Technique: Patient Position: ??Supine Prep: Chlorhexidine and Isopropyl Alcohol and Maximum Sterile Barriers Used ?? Monitoring: ??Heart Rate, Equipment Associate, Continuous Pulse Ox and Blood Pressure Oxygen Source: ??Room Air Location: ??Interscalene Laterality: ??Right Injection Technique: ??Single Shot Number of Attempts: ??1 Placement Technique: Ultrasound Guided ?? Anesthesia Block Medication Given: bupivacaine PF (MARCAINE) injection 0.5% - infiltration 15 mL - 03/01/2025 12:22:00 PM Anxiolytics Given: Yes ?? Needle: Needle Type: ??Short-Bevel Needle Gauge: ??21 G Needle Length: ??10 cm Needle Localization: ??Ultrasound Guidance and Anatomical Landmarks Catheter Size: ??20 G Test Dose: ??Negative and Lidocaine 1.5% with Epinephrine 1-to-200,000 Assessment: Injection Assessment: ??Negative Aspiration for Heme, No Paresthesia on Injection, Local Visualized Surrounding Nerve on Ultrasound and No S/S intravascular or Intraneural Injection Paresthesia Pain: ??None Heart Rate Change: No ?? Slow Fractionated Injection: Yes ? Authorizing ProviderResult TypeResult StatusLawson Taylor MDANESTHESIA ORDERABLESFinal Result * NV AN ELECTIVE SUPRAGLOTTIC AIRWAY (02/28/2025 12:45 PM EST) Narrative Lawson Yi APRN-CRNA - 02/28/2025 12:45 PM EST OMKAR Gale 02/28/2025 12:59 PM Airway Patient location during procedure: OR Urgency: Elective Date/Time: 02/28/2025 12:45 PM Airway not difficult IV In Situ: Peripheral General Information and Staff Service Provider: OMKAR Gale Placed by: ??OMKAR Gale Patient Identified, IV Checked, Risks and Benefits Discussed, Surgical Consent, Monitors and Equipment Checked, Pre-op Evaluation and Timeout Performed Fire Risk Assessment Score: 0 Consent for Emergent Airway (if performed for an anesthetic, see related documentation for consents) Risks and benefits: risks, benefits and alternatives were discussed Indications and Patient Condition Preoxygenated: yes Mask difficulty assessment: Not Attempted Indications for airway management: Anesthesia Complications: No Complicating Factors: No Final Airway Details Final airway type: Supraglottic Airway Successful Airway: I Gel SGA size: 4 No Bite Block Placed Post Intubation Trauma? No Placement verified by: capnography and symmetrical chest wall movement Number of attempts at approach: 1 Airway Brand: ??I Gel Authorizing ProviderResult TypeResult StatusLawson Taylor MDANESTHESIA ORDERABLESFinal Result * Bedside Glucose *Place/Obtain serum glucose if >500 per glucometer. (02/28/2025 11:16 AM EST)ComponentValueRef RangeTest MethodAnalysis Time Performed AtPathologist SignatureBedside Glucose (POC)8765 - 99 mg/dL 02/28/2025 11:21 AM ESTPROCOMMUNITY MEMORIAL HOSPITAL OF SAN BUENAVENTURApecimen (Source) Anatomical Location / LateralityCollection Method / VolumeCollection Time Received Timearterial/tyngtzpck72/02/2025 11:16 AM EST02/28/2025 11:21 AM EST Narrative Authorizing ProviderResult TypeResult StatusGesima Terrazas Jr., DOPOINT OF CARE TEST ORDERABLESFinal ResultPerforming OrganizationAddressCity/State/ZIP CodePhone Number [facility] [address] [place] [address], * Basic Metabolic Panel (02/09/2025 2:14 PM EST)ComponentValueRef RangeTest MethodAnalysis TimePerformed AtPathologist VkpzuhnmbOJWVNR016917 - 146 mmol/L 02/09/2025 6:36 PM [facility] LABORATORYPOTASSIUM4.23.5 - 5.0 mmol/L104/11/2024 6:36 PM [facility] MKJQVXZWRJHLODPTGZ84588 - 109 mmol/L104/11/2024 6:36 PM [facility] LABORATORYCARBON PYJFKAI9731 - 32 mmol/L104/11/2024 6:36 PM [facility] LABORATORYANION TRZ653 - 15 mmol/L104/11/2024 6:36 PM [facility] LABORATORYBLOOD UREA BSVSTHSH892 - 23 mg/dL02/09/2025 6:36 PM [facility] LABORATORYCREATININE1.000.60 - 1.30 mg/dL02/09/2025 6:36 PM [facility] LABORATORYComment:METHOD TRACEABLE TO IDMS BXHNBZPRSQRMRZH8776 - 99 mg/dL02/09/2025 6:36 PM [facility] LABORATORYCALCIUM9.88.5 - 10.5 mg/dL02/09/2025 6:36 PM [facility]ORYEGFR Non-Race Kusabmlca91>=60 ml/min/1.73sq.m104/11/2024 6:36 PM [facility] LABORATORYComment: Reported eGFR is based on the CKD-EPI 2020 equation that does not use a race coefficient. Specimen (Source)Anatomical Location / LateralityCollection Method / Volume Collection TimeReceived TimeBloodVenous blood / UnknownVenipuncture / Unknown 02/09/2025 2:14 PM EST02/09/2025 2:14 PM EST Narrative Authorizing ProviderResult TypeResult StatusGeorge Angie Terrazas Jr., DOLAB BLOOD ORDERABLESFinal ResultPerforming OrganizationAddressCity/State/ZIP CodePhone Number [facility] [address] [place] [address], * ECG 12 lead (02/09/2025 2:08 PM EST)Specimen (Source)Anatomical Location / LateralityCollection Method / VolumeCollection TimeReceived Time02/09/2025 2:08 PM EST Narrative [facility] - 02/09/2025 4:58 PM EST Authorizing ProviderResult TypeResult StatusGeorge Angie Terrazas Jr., DORAYMOND ORDERABLESFinal ResultPerforming OrganizationAddressCity/State/ZIP CodePhone Number [facility] from Last 3 Months Additional Health Concerns Active ProblemsNoted DateDiagnosed DateAutogenerated Cnqlnun1902/28/2025 Insurance * Guarantor: Benjamin Renteria IIAccount TypeRelation to PatientDate of BirthPhoneBilling AddressPersonal/YnvqdyCkzm1970 [address] [address] Care Teams Team MemberRelationshipSpecialtyStart DateEnd Jo-Ann Loera MD [address] [place] [address] PCP - GeneralFamily Iqiszbhx29/4/23
--- OUTSIDE RECORDS SUMMARY | 2025-03-17 11:23 | XMS_ITS | Clinical Summary ---
Author Organization [facility] Address [address] [place] [address] Care Team Providers Care Boring Machine Operator Horizontal Name Role Phone Grzegorz Ahn MD Primary Care Provider [phone] Allergies Active AllergyReactionsCriticalityNoted DateCommentsCat DanderUnknownMedium 08/11/2019 Other Reaction(s): Sneezing / Watery Eyes Itchy eyes, sneezing Pneumococcal VaccinesGI qrnxlczfacu84/24/2023 Medications MedicationSigDispense QuantityRefillsLast FilledStart DateEnd DateStatus ascorbic acid (Vitamin C) 1000 MG tablet Take 1,000 mg by mouth in the morning.Active baclofen (Lioresal) 5 MG tablet Take 10 mg by mouth at iypgnrw2906/11/2022ctive ocrelizumab (Ocrevus) 300 MG/10ML solution Infuse into a venous catheter every 6 monthsActive zinc gluconate 50 MG tablet Take 100 mg by mouth in the morning.Active MULTIPLE VITAMIN PO Take by mouthActive lisinopril 20 MG tablet Indications:Benign essential HTNTAKE 1 TABLET DAILY 90 tablet ctive rosuvastatin (Crestor) 10 MG tablet Indications:Mixed hyperlipidemiaTake 1 tablet (10 mg) by mouth Daily 90 tablet ctive oxyCODONE-acetaminophen (Percocet) 5-325 MG tablet Indications:Tear of right rotator cuff, unspecified tear extent, unspecified whether traumaticTake 1 tablet by mouth every 6 (six) hours if needed for moderate pain for up to 5 days 20 tablet Expired Active Problems ProblemNoted DateDiagnosed DateAcute pain of right ntwgwerv19/01/2025Cat xekebprya94/31/2023ifficulty shejczr9611/27/20224738Sefrqzbgli93/31/2023Elevated LFTs 11/27/2022Family history of malignant neoplasm of cycsuym3011/27/2022lucose bmqploecpmg76/31/2023History of auytboojdd18/31/2023Internal derangement of right jahkznxa12/31/2023Neoplasm of uncertain behavior of skin11/27/2022 Crxyunhmgk33/31/2023Sprain of right rotator cuff bjduoqn6311/27/2022Thoracic disc jnkakzwmud78/31/2023Thoracic spinal yqbwumla72/31/2023Tricuspid valve wdyizgrhwawze00/31/2023eviated xovarf4202/10/2022Heart jyzpwh0404/12/2021 Overview (09/08/2022): as a child Dwnkjgcnhl61/14/2022Visual dzuxnubxru12/14/2022 Overview (09/08/2022): reading glasses Low HDL (under 40)2021Thyroid zhepbv3312/11/2020 Assessment & Plan (06/01/2023 6:53 AM EST): Pt is seeing Dr Schwartz for follow up Multiple /01/2021 Overview (09/08/2022): b/l leg weakness, cramping in right hand Assessment & Plan (06/01/2023 6:53 AM EST): Pt is seeing [facility] MS Episodic ipzkursxwcblkym05/09/2020Mixed vvqmwmaaekwasc53/09/2020Benign essential HTN03/07/2020 Resolved Problems ProblemNoted DateDiagnosed DateResolved OfxxTuydgpjm82/14/202209/ Overview (09/08/2022): Cat dander Subconjunctival wqujoazkgf77/14/202203/06/2023 Overview (09/08/2022): b/l leg weakness, cramping in right hand Abnormal EKG1/First degree AV block/ Encounters DateTypeDepartmentCare LvjdXjjzypcqeny39/16/2025 10:30 AM ESTOffice Visit [facility] [address] [facility] [phone] Lonnie Bragg PA S/P arthroscopy of right shoulder (Primary Dx)03/14/2025amboo flowsheet [facility] [address] [place] [phone] Lonnie Bragg PA 03/14/20258402Ybstna12/15/1525Uceoiy26/08/2025Telephone [facility] [address] [facility] [address] [facility] [phone] Grzegorz Ahn MD 02/27/2025Refill [facility] [address] [place] [phone] Lyle Juarez, INGOT BUGGY OPERATOR Tear of right rotator cuff, unspecified tear extent, unspecified whether traumatic (Primary Dx)02/17/2025Results Follow-Up [facility] [address] [facility] [phone] Amanda Jaimes NP Comprehensive metabolic panel, PSA, Lipid panel, Additional followed-up results: 2:30 PM ESTOffice Visit [facility] [address] [place] [phone] Lyle Juarez, JAVY Pre-op exam (Primary Dx)2025amboo flowsheet [facility] [address] [facility] [phone] Lyle Juarez NP 02/13/20250234Fajnbt55/12/2025 8:00 AM ESTOffice Visit [facility] [address] [place] [address] Jr. Dylan Terrazas, Acute pain of right shoulder (Primary Dx); Impingement of right shoulder; Tear of right rotator cuff, unspecified tear extent, unspecified whether jrelolbph44/12/2025amboo flowsheet [facility] [address] [place] [address] Jr. Dylan Terrazas, DO 02/08/20254580Wvyntt87/04/2025Results Follow-Up [facility] [place] [facility] [address] [place] [phone] Lonnie Bragg PA MR shoulder right wo IV xbcnobas56/03/2025 8:15 AM ESTAncillary Procedure [facility] [address] [place] [phone] Acute pain of right shoulder; Impingement of right qodrcvma64/03/7191Eiltig52/24/2025 8:00 AM EDTOffice Visit [facility] [address] [place] [phone] Lonnie Bragg PA Acute pain of right shoulder (Primary Dx); Impingement of right fwrfhzun60/24/2025[facility] flowsheet [facility] [address] [place] [address] Lonnie Bragg PA 01/20/20256490Snyvqw61/23/3056Xcrwwc38/22/2025 7:30 AM EDTTreatment [facility] [address] [place] [phone] Hilda Park PTA Acute pain of right shoulder (Primary Dx)01/18/2025amboo flowsheet [facility] [address] [place] [phone] Hilda Park PTA 10/01/16/2025 7:00 AM EDTTreatment [facility] [address] [place] [phone] Ludwin Dale, PT Acute pain of right shoulder (Primary Dx)01/16/2025amb flowsheet [facility] [address] [place] [address] Ludwin Dale, PT 01/16/20259556Brlevx55/17/2025 7:30 AM EDTTreatment [facility] [address] [facility] [address] Ludwin Dale, PT Acute pain of right shoulder (Primary Dx)01/13/2025 flowsheet [facility] [address] [place] [address] Ludwin Dale, PT 01/13/20257410Enqell36/14/2025 9:30 AM EDTTreatment [facility] [address] [facility] [address] Wanda Smith, EXTRUSION DIE COORDINATOR Acute pain of right shoulder (Primary Dx)01/10/20255724Yxpeez59/10/2025 7:30 AM EDT Treatment [facility] [address] [facility] [address] Ludwin Dale, PT Acute pain of right shoulder (Primary Dx)01/06/2025amb flowsheet [facility] [address] [facility] [address] Ludwin Dale, PT 01/06/20253481Majkdo62/07/2025 3:00 PM EDTTreatment [facility] [address] [facility] [place] [address] Hilda Park, EXTRUSION DIE COORDINATOR Acute pain of right shoulder (Primary Dx)01/03/2025amb flowsheet [facility] [address] [facility] [place] [address] Hilda Park, BRANDON 01/03/20258978Yzvnnr79/03/2025 2:30 PM EDTTreatment [facility] [address] [address] Hilda Park, EXTRUSION DIE COORDINATOR Acute pain of right shoulder (Primary Dx)12/30/20246446Uqtdhq94/01/2025 7:00 AM EDT Evaluation [address] [place] [address] Ludwin Dale, PT Acute pain of right shoulder (Primary Dx)12/28/2024Plan of Care Documentation [address] [address] 12/28/2024amboo flowsheet [place] [address] [address] Ludwin Dale, PT 12/28/20247560Mjchkb75/29/2025 8:00 AM EDTOffice Visit [facility] [address] [facility] [place] [phone] Amanda Jaimes NP Wellness examination (Primary Dx); Multiple sclerosis (HCC); Neuropathy; Thoracic spinal stenosis; Benign essential HTN ; Heart murmur; Tricuspid valve insufficiency, unspecified etiology; Thoracic disc herniation; Thyroid nodule ; Cat allergies; Deviated septum; Difficulty walking; Dyschromia; Episodic lightheadedness; Family history of malignant neoplasm of bladder; Glucose intolerance; History of concussion; Low HDL (under 40) ; Mixed hyperlipidemia ; Neoplasm of uncertain behavior of skin; Visual ssqhhdotpr24/29/2025amboo flowsheet [facility] [address] [facility] [place] [address] Amanda Jaimes NP 12/26/20246975Yzdyjt71/28/2025Refill [facility] [address] [phone] Lyle Juarez, INGOT BUGGY OPERATOR Degenerative arthritis of metacarpophalangeal joint of middle finger of right hand12/22/20240569Elqsoo38/19/2025 8:00 AM EDTOffice Visit [facility] [address] [facility] [phone] Lonnie Bragg PA Acute pain of right shoulder (Primary Dx)12/16/2024amboo flowsheet [facility] [address] [place] [phone] Lonnie Bragg PA 12/16/2024Travelfrom Last 3 Months Immunizations ImmunizationAdministration DatesNext DueHep A, Adult09/05/2000,02/29/2000Hep B, adult05/06/2014,12/03/2013,10/30/2013Influenza Whole01/17/2003,03/05/2002, 02/01/2002,02/27/2001,02/10/2001,04/18/2000Influenza, High-dose Seasonal, Quadrivalent, Preservative Free01/31/2023Influenza, Split (incl. purified surface antigen)01/31/2006,02/01/2005Influenza, injectable, MDCK, preservative free, ybwunhgchyem46/21/2017Influenza, injectable, mdblwjwsonsj67/29/2020 Influenza, injectable, quadrivalent, preservative free01/10/2022,12/24/2020, 01/26/2020,02/10/2019,01/13/2019,02/17/2018,01/31/2018,01/28/2017,02/02/2016 Influenza, live, xnfsazfnyu56/16/2012,02/02/2010,12/16/2008,01/29/2008, 02/28/2007,04/07/2004Influenza, seasonal, injectable, preservative free 12/30/2023,02/03/2016,12/20/2014,01/28/2014,01/30/2013,12/08/2010Influenza, seasonal, intradermal, preservative free12/24/2020MMR03Meningococcal BAVP933Moderna Bivalent Booster Dxrobngpaip38/21/2022Moderna SARS-CoV-2 Xekrbeeqxuk24/06/2021,05/05/2020Novel ytbkjuhnz-T1X6-1275/20/7231EAM4908/30/1991 PPD Test01/28/2003,03/05/2002,02/27/2001,04/18/2000Pneumococcal Polysaccharide CWQB1801TD (adult), 2 Lf tetanus toxoid, preservative free, adsorbed 01/13/2019,10/15/1999Tdap1,01/13/2019,02/17/2018,05/29/2013,06/16/2009 Tetanus toxoid, /18/2000Typhoid, Awuzfzmlpg78/06/2004,01/01/2002, 01/11/2000Yellow Fever05/09/2000 Family History Medical HistoryRelationNameCommentsThyroid nodulesChildHypertensionFather Prostate cancerFatherbladder cancerFatherelevated PSAFatherHeart diseaseMaternal GrandfatherStrokeMaternal GrandmotherDiabetesMotherHeart diseaseMother HypertensionMotherMelanomaMotherbile duct cancer with liver metsHypertension Paternal GrandfatherStrokePaternal GrandfatherBreast cancerPaternal Grandmother Heart diseasePaternal GrandmotherMultiple sclerosisSiblingRelationNameStatus PijcxorzTuddact1JendgSjodikIixhjNzwmoldn GrandfatherDeceasedMaternal Grandmother AliveMotherDeceasedPaternal GrandfatherDeceasedPaternal GrandmotherDeceased SiblingSister4 Social History Tobacco UseTypesPacks/DayYears UsedDateSmoking Tobacco: NeverPassive Smoke Exposure: PastSmokeless Tobacco: Never Tobacco Cessation:Counseling Given: Not Answered Alcohol UseStandard Drinks/WeekCommentsYes7 (1 standard drink = 0.6 oz pure alcohol)1-2 drinks 2-4x a month in the past year, Caffeine intake: 1 cup per day coffeeHumiliation, Afraid, Rape, and Kick questionnaireAnswerDate RecordedWithin the last year, have you been afraid of your partner or ex-partner?No01/09/2023 Within the last year, have you been humiliated or emotionally abused in other ways by your partner or ex-partner?No01/09/2023Within the last year, have you been kicked, hit, slapped, or otherwise physically hurt by your partner or ex-partner?No01/09/2023Within the last year, have you been raped or forced to have any kind of sexual activity by your partner or ex-partner?No01/09/2023 Social Connection and Isolation PanelAnswerDate RecordedIn a typical week, how many times do you talk on the phone with family, friends, or neighbors?Twice a week05/31/2023How often do you get together with friends or relatives?Twice a week05/31/2023How often do you attend latter-day or mosque services?More than 4 times per year05/31/2023o you belong to any clubs or organizations such as latter-day groups, unions, fraternal or athletic groups, or school groups?Yes 05/31/2023How often do you attend meetings of the clubs or organizations you belong to?More than 4 times per year05/31/2023re you , , , , never , or living with a partner?Dkgcght0405/31/2023 AUDIT-CAnswerDate RecordedQ1: How often do you have a drink containing alcohol?4 or more times a week05/31/2023Q2: How many drinks containing alcohol do you have on a typical day when you are drinking?1 or Q3: How often do you have six or more drinks on one occasion?Never05/31/2023Overall Financial Resource Strain (CARDIA)AnswerDate RecordedHow hard is it for you to pay for the very basics like food, housing, medical care, and heating?Not hard at all05/31/2023 PHQ-2AnswerDate RecordedPatient Health Questionnaire-2 Yajak039[facility] [place] of Occupational Health - Occupational Stress QuestionnaireAnswerDate RecordedDo you feel stress - tense, restless, nervous, or anxious, or unable to sleep at night because yourmind is troubled all the time - these days?To some dkckhw8705/31/2023Exercise Vital SignAnswerDate RecordedOn average, how many days per week do you engage in moderate to strenuous exercise (like a brisk walk)?3 days05/31/2023On average, how many minutes do you engage in exercise at this level?30 min05/31/2023Hunger Vital SignAnswerDate RecordedWithin the past 12 months, you worried that your food would run out before you got the money to buy more.Never true05/31/2023Within the past 12 months, the food you bought just didn't last and you didn't have money to get more.Never true05/31/2023RAPARE - TransportationAnswerDate RecordedIn the past 12 months, has lack of transportation kept you from medical appointments or from getting medications?No 05/31/2023In the past 12 months, has lack of transportation kept you from meetings, work, or from getting things needed for daily living?No05/31/2023 Housing Stability Vital SignAnswerDate RecordedIn the last 12 months, was there a time when you were not able to pay the mortgage or rent on time?No05/31/2023 Number of Places Lived in the Last YearNot on file05/31/2023In the last 12 months, was there a time when you did not have a steady place to sleep or slept in [facility] (including now)?No05/31/2023Sex and Gender InformationValueDate RecordedSex Assigned at BirthNot on fileLegal FqeKzrf9706/11/2022 6:49 PM EDT Gender IdentityNot on fileSexual OrientationNot on file Last Filed Vital Signs Vital SignReadingTime TakenCommentsBlood Clwmiqto227/7209/ 7:57 AM EDT Vpiem564112/26/2024 7:57 AM BCMFqisutwgrwu11.8 ??C (98.2 ??F)09/07/2024 8:59 AM EDTRespiratory Rate--Oxygen Edujlklgmw76%01/09/2023 4:01 PM EDTInhaled Oxygen Concentration--Zwyffl53 kg (205 lb)2025 2:26 PM GJMJhjefr471.3 cm (5' 11 ) 2025 2:26 PM ESTBody Mass Index28.5902/13/2025 2:26 PM EST Plan of Treatment DateTypeDepartmentCare Team (Latest Contact Info)Odgtovltkaz31/13/2026 1:15 PM ESTOffice Visit [facility] [address] [place] [address] Lonnie Bragg PA [address] [place] [address] 12/28/2025 8:00 AM EDTOffice Visit [facility] [address] [place] [address] Pump, Amanda, INGOT BUGGY OPERATOR [address] [place] [address] Health MaintenanceDue DateLast DoneCommentsCT Sldaswmbuqio1971FIT-DNA 1971FIT1971FOBT02/13/19710244Ngrnextlmwqtt1971Pneumococcal Vaccine: Pediatrics (0 to 5 Years) and At-Risk Patients (6 to 64 Years) (2 of 2 - PCV)/1COVID-19 Vaccine (5 - 2024- season)2024 01/17/2022, 01/23/2021, 06/02/2020, Additional history existsInfluenza Vaccine (#1)/04/2023, 01/31/2023, 01/10/2022, Additional history exists Pupxilighwi19/20/203301/3Colorectal Cancer Pcxcazxhi93/20/2033 Procedures Procedure NamePriorityDate/TimeAssociated DiagnosisCommentsBEDSIDE GLUCOSE LAB ([facility])Guygxxx3502/28/2025 11:16 AM EST BASIC METABOLIC ILWCOSvpyqau89/13/2025 2:14 PM EST MR SHOULDER RIGHT WO IV SJQOLZROLdxpohc02/03/2025 9:14 AM EST Acute pain of right shoulder Impingement of right shoulder T4, ZTHGPrwepkg72/29/2025 8:37 AM EDT Thyroid nodule JCXDxmfzxv39/29/2025 8:37 AM EDT Thyroid nodule CBC (INCLUDES DIFF/PLT)Tmmtobe6912/26/2024 8:37 AM EDT Multiple sclerosis (HCC) LIPID RWMJUDokmanh80/29/2025 8:37 AM EDT Mixed hyperlipidemia PSA, RQMYRMdfgouj09/29/2025 8:37 AM EDT Screening for prostate cancer COMPREHENSIVE METABOLIC QVDJWTprshzp68/29/2025 8:37 AM EDT Mixed hyperlipidemia GCXMXEMKZJOBkvhkow93/20/2023 12:00 PM EST from Last 3 Months or Most Recently Relevant to Health Maintenance Results * B[facility] GLU[facility]SE [facility] ([facility]) (02/28/2025 11:16 AM EST)ComponentValueRef RangeTest MethodAnalysis TimePerformed AtPathologist SignatureBEDSIDE GLUCOSE JRM4271 - 99 mg/dLPROMEDICAComment: ?? PERFORMED AT [address] [place] [address] Specimen (Source)Anatomical Location / LateralityCollection Method / Volume Collection TimeReceived Time02/28/2025 11:16 AM EST02/28/2025 11:21 AM EST Narrative Authorizing ProviderResult TypeResult StatusJr. Dylan Terrazas [facility] BLOOD ORDERABLESFinal ResultPerforming OrganizationAddressCity/State/ZIP CodePhone Number [facility] * Basic metabolic panel (02/09/2025 2:14 PM EST)ComponentValueRef RangeTest MethodAnalysis TimePerformed AtPathologist IfbnqvowqQiywdd297931 - 146 mmol/L [facility]APotassium, Bld4.23.5 - 5.0 mmol/YENPLMGCMJOsqaqtmi89587 - 109 mmol/L [facility]ACarbon Orneaya2876 - 32 mmol/LPROMEDICAAnion Gkm673 - 15 mmol/L ZFXZFVNBSMZD205 - 23 mg/dLPROMEDICACreatinine1.000.60 - 1.30 mg/dLPROM[facility]ICA Comment:METHOD TRACEABLE TO IDMS OFLLBVLKSxgeaci6370 - 99 mg/dL[facility] Calcium9.88.5 - 10.5 mg/xZMPVKJGDNATXXZ19>=60 ml/min/1.73sq.mPROMEDICAComment: Reported eGFR is based on the CKD-EPI 2020 equation that does not use a race coefficient. ?? PERFORMED AT [facility] [address],[place] [address] Specimen (Source)Anatomical Location / LateralityCollection Method / Volume Collection TimeReceived Time02/09/2025 2:14 PM EST02/09/2025 6:14 PM EST Narrative Authorizing ProviderResult TypeResult StatusJr. Dylan Terrazas [facility] BLOOD ORDERABLESFinal ResultPerforming OrganizationAddressCity/State/ZIP CodePhone Number [facility] * MR shoulder right wo IV contrast (01/30/2025 9:14 AM EST)Anatomical Region LateralityModalityUpper Extremities, ShoulderRightMagnetic ResonanceSpecimen (Source)Anatomical Location / LateralityCollection Method / VolumeCollection TimeReceived Time01/31/2025 1:07 PM EST Impressions 01/31/2025 1:10 PM EST Tears of supraspinatus tendon as detailed. Mild infraspinatus tendinosis. ELECTRONICALLY SIGNED BY: Singh Gilbert DO Narrative 01/31/2025 1:10 PM EST EXAM: MR SHOULDER RIGHT WO IV CONTRAST HISTORY: Shoulder pain. History of shoulder surgery in 1999. TECHNIQUE: Multiplanar multisequence MRI of the ??shoulder was performed Without contrast. COMPARISON: Radiographs November 18, 2024. FINDINGS: Mild degenerative changes of the acromioclavicular joint without undersurface osteophyte formation.Lateral downsloping of the acromion. The acromion is curved. Coracoclavicular ligament intact. Trace subacromial/subdeltoid bursal fluid. Postsurgical changes of rotator cuff repair. Full-thickness tear of distal posterior fibers of supraspinatus tendon centered approximately 1.8 cm proximal to the footprint measuring approximately 2 mm in AP dimension for a transverse length of approximately 1 cm. Smaller near full thickness tear ofdistal anterior fibers of supraspinatus tendon also centered approximately 1.8 cm proximal to the footprint. Mild infraspinatus tendinosis. Subscapularis and teres minor tendons are intact no atrophyor fatty infiltration of the rotator cuff musculature. The intra-articular and extra-articular long head biceps tendon is intact. The biceps tendon resides within the bicipital groove. No labral tear identified. No well-defined or measurable cartilage defect. No ??glenohumeral joint effusion . Procedure Note Singh Gilbert DO - 01/31/2025 EXAM: MR SHOULDER RIGHT WO IV CONTRAST HISTORY: Shoulder pain. History of shoulder surgery in 1999. TECHNIQUE: Multiplanar multisequence MRI of the shoulder was performedWithout contrast. COMPARISON: Radiographs November 18, 2024. FINDINGS: Mild degenerative changes of the acromioclavicular joint withoutundersurface osteophyte formation. Lateral downsloping of the acromion.The acromion is curved. Coracoclavicular ligament intact. Tracesubacromial/subdeltoid bursal fluid. Postsurgical changes of rotator cuff repair. Full-thickness tear of distal posterior fibers of supraspinatus tendon centered approximately 1.8 cmproximal to the footprint measuring approximately 2 mm in AP dimension fora transverse length of approximately 1 cm. Smaller near full thicknesstear of distal anterior fibers of supraspinatus tendon also centeredapproximately 1.8 cm proximal to the footprint. Mild infraspinatustendinosis. Subscapularis and teres minor tendons are intact no atrophy orfatty infiltration of the rotator cuff musculature. The intra-articular and extra-articular long head biceps tendon is intact.The biceps tendon resides within the bicipital groove. No labral tear identified. No well-defined or measurable cartilagedefect. No glenohumeral joint effusion . IMPRESSION: Tears of supraspinatus tendon as detailed. Mild infraspinatus tendinosis. ELECTRONICALLY SIGNED BY: Singh Gilbert DO Authorizing ProviderResult TypeResult StatusMatthekevin Bragg [facility] MRI PROCEDURES Final Result * (ABNORMAL) CBC and differential (12/26/2024 8:37 AM EDT)ComponentValueRef RangeTest MethodAnalysis TimePerformed AtPathologist SignatureWHITE BLOOD CELL COUNT5.13.8 - 10.8 Thousand/uLQUESTRED BLOOD CELL COUNT4.724.20 - 5.80 Million/fDVBMCDFFEXVRAMJX49.513.2 - 17.1 g/rACNQIHPBESLMKFLW42.738.5 - 50.0 % IBVDOZTM75.680.0 - 100.0 lFNLGGAELN80.727.0 - 33.0 qpKHTLQODRW72.232.0 - 36.0 g/dLQUESTComment: For adults, a slight decrease in the calculated MCHC value (in the range of 30 to 32 g/dL) is most likely not clinically significant; however, it should be interpreted with caution in correlation with other red cell parameters and the patient's clinical condition. RDW13.711.0 - 15.0 %QUESTPLATELET TGTVI982(L)140 - 400 Thousand/rEGVDWLHRA92.6 7.5 - 12.5 fLQUESTABSOLUTE NEUTROPHILS3,3051,500 - 7,800 cells/uLQUESTABSOLUTE IVHHSPWOGWS198359 - 3,900 cells/uLQUESTABSOLUTE HZHIOKILS028438 - 950 cells/uL QUESTABSOLUTE MHCFVUSICAV07065 - 500 cells/uLQUESTABSOLUTE BIPZOLYON050 - 200 cells/aEPYQNQIEXBFNCECQT80.8%QUZMOUKWZQUQKQBC33.3%DAMLDSPUTJHSEI64.8%QUEST EOSINOPHILS3.5%QUESTBASOPHILS0.6%QUESTCOMMENT(S)QUESTComment: Review of peripheral smear confirms automated results. Specimen (Source)Anatomical Location / LateralityCollection Method / Volume Collection TimeReceived TimeBloodVenous blood specimen / Vfjdnhd7812/26/2024 8:37 AM EDT12/26/2024 3:08 PM EDT Narrative Resulting Agency Comment Performing Organization Information ?Site ID: QTW ?Name: [facility] ?Address: [address] [place] [phone] ?Director: Sarah Smith Authorizing ProviderResult TypeResult StatusJo-Ann [facility] BLOOD ORDERABLESFinal ResultPerforming OrganizationAddressCity/State/ZIP CodePhone Number [facility] * [facility] (12/26/2024 8:37 AM EDT)ComponentValueRef RangeTest MethodAnalysis Time Performed AtPathologist SignatureTSH1.580.40 - 4.50 mIU/LQUESTSpecimen (Source)Anatomical Location / LateralityCollection Method / VolumeCollection TimeReceived TimeBloodVenous blood specimen / Vjbjqiw0012/26/2024 8:37 AM EDT 12/26/2024 3:08 PM EDT Narrative Resulting Agency Comment Performing Organization Information ?Site ID: QPT ?Name: [facility] ?Address: [address] [place] [address], [address] [place] [address] ?Director: Josué Boston MD Authorizing ProviderResult TypeResult StatusMary B Evaristo CHIU BLOOD ORDERABLESFinal ResultPerforming OrganizationAddBelmont Behavioral Hospitalty/[facility], [place]Phone Number QUEST * T4, free (12/26/2024 8:37 AM EDT)ComponentValueRef RangeTest MethodAnalysis TimePerformed AtPathologist SignatureT4, FREE1.00.8 - 1.8 ng/dLQUESTSpecimen (Source)Anatomical Location / LateralityCollection Method / VolumeCollection TimeReceived TimeBloodVenous blood specimen / Mlondry3912/26/2024 8:37 AM EDT 12/26/2024 3:08 PM EDT Narrative Resulting Agency Comment Performing Organization Information ?Site ID: QPT ?Name: [facility] ?Address: [address] [place] [address], [address] [place] [address] ?Director: Josué Boston MD Authorizing ProviderResult TypeResult StatusMary B Evaristo CHIU BLOOD ORDERABLESFinal ResultPerforming [facility] CenterAdd[facility] Hospitalty/State/[facility] CodePhone Number QUEST * PSA (12/26/2024 8:37 AM EDT)ComponentValueRef RangeTest MethodAnalysis Time Performed AtPathologist SignaturePSA, TOTAL0.84< OR = 4.00 ng/mLQUESTComment: The total PSA value from this assay system is standardized against the WHO standard. The test result will be approximately 20% lower when compared to the equimolar-standardized total PSA (Keo Barry). Comparison of serial PSA results should be interpreted with this fact in mind. This test was performed using the Siemens chemiluminescent method. Values obtained from different assay methods cannot be used interchangeably. PSA levels, regardless of value, should not be interpreted as absolute evidence of the presence or absence of disease. Specimen (Source)Anatomical Location / LateralityCollection Method / Volume Collection TimeReceived TimeBloodVenous blood specimen / Aeabwcc3812/26/2024 8:37 AM EDT12/26/2024 3:08 PM EDT Narrative Resulting Agency Comment Performing Organization Information ?Site ID: QPT ?Name: [facility] ?Address: [address] [place] [address], [address] [place] [phone] ?Director: Josué Boston MD Authorizing ProviderResult TypeResult StatusJo-Ann Loera MDLAB BLOOD ORDERABLESFinal ResultPerforming OrganizationAddressCity/State/ZIP CodePhone Number QUEST * (ABNORMAL) Lipid panel (12/26/2024 8:37 AM EDT)ComponentValueRef RangeTest MethodAnalysis TimePerformed AtPathologist SignatureCHOLESTEROL, XUMBO019<200 mg/dLQUESTHDL ABBZEGYMIUR42(L)> OR = 40 mg/fLCUPVDRZYGJTOHUBWPT981(H)<150 mg/dLQUESTComment: If a non-fasting specimen was collected, consider repeat triglyceride testing on a fasting specimen if clinically indicated. [place] et al. J. of Clin. Lipidol. 2015;9:129-169. LDL NSDVAREHVGG72ri/dL (calc)QUESTComment: Reference range: <100 Desirable range <100 mg/dL for primary prevention; <70 mg/dL for patients with CHD or diabetic patients with > or = 2 CHD risk factors. LDL-C is now calculated using the Oskar-Carlie calculation, which is a validated novel method providing better accuracy than the Friedewald equation in the estimation of LDL-C. Oskar SS et al. ADDY. 2013;310(19): 6739-0924 (http://education.Spotlight.fm.MaxMilhas/faq/KLC005) CHOL/HDLC RATIO5.3(H)<5.0 (calc)QUESTNON HDL WBFBAWGIOTT858<130 mg/dL (calc) QUESTComment: For patients with diabetes plus 1 major ASCVD risk factor, treating to a non-HDL-C goal of <100 mg/dL (LDL-C of <70 mg/dL) is considered a therapeutic option. Specimen (Source)Anatomical Location / LateralityCollection Method / Volume Collection TimeReceived TimeBloodVenous blood specimen / Nesajfz3012/26/2024 8:37 AM EDT12/26/2024 3:08 PM EDT Narrative Resulting Agency Comment Performing Organization Information ?Site ID: QPT ?Name: [facility] ?Address: [address] [place] [address], [address] [place] [phone] ?Director: Josué Boston MD Authorizing ProviderResult TypeResult StatusJo-Ann Loera MDLAB BLOOD ORDERABLESFinal ResultPerforming OrganizationAddressCity/State/ZIP CodePhone Number QUEST * (ABNORMAL) Comprehensive metabolic panel (12/26/2024 8:37 AM EDT)Component ValueRef RangeTest MethodAnalysis TimePerformed AtPathologist SignatureGlucose 106(H)65 - 99 mg/dLQUESTComment: ? Fasting reference interval For someone without known diabetes, a glucose value between 100 and 125 mg/dL is consistent with prediabetes and should be confirmed with a follow-up test. BUN28(H)7 - 25 mg/dLQUESTCreatinine0.970.70 - 1.30 mg/gIEGSRMTEWY84> OR = 60 mL/min/1.53g8BLVQORDY/CREATININE RATIO29(H)6 - 22 (calc)JZTMDEppsiu658523 - 146 mmol/LQUESTPotassium, Bld4.23.5 - 5.3 mmol/MYJVUULpjitrmg89347 - 110 mmol/LQUEST Carbon Zkrobar2837 - 32 mmol/LQUESTCalcium9.18.6 - 10.3 mg/dLQUESTPROTEIN, TOTAL 6.66.1 - 8.1 g/dLQUESTALBUMIN4.73.6 - 5.1 g/dLQUESTGLOBULIN1.91.9 - 3.7 g/dL (calc)QUESTALBUMIN/GLOBULIN RATIO2.51.0 - 2.5 (calc)QUESTBILIRUBIN, TOTAL0.60.2 - 1.2 mg/dLQUESTALKALINE MZYCSAXKEJH0994 - 144 U/CFUBXXRIW72(H)10 - 35 U/LQUEST MAV874(H)9 - 46 U/LQUESTSpecimen (Source)Anatomical Location / Laterality Collection Method / VolumeCollection TimeReceived TimeBloodVenous blood specimen / Dtwnscm9912/26/2024 8:37 AM EDT12/26/2024 3:08 PM EDT Narrative Resulting Agency Comment Performing Organization Information ?Site ID: QTW ?Name: [facility] ?Address: [address] [place] [phone] ?Director: Sarah Smith Authorizing ProviderResult TypeResult StatusJo-Ann CHIU BLOOD ORDERABLESFinal ResultPerforming OrganizationAddressCity/State/ZIP CodePhone Number QUEST * Colonoscopy (04/18/2022 12:00 PM EST)Anatomical RegionLateralityModality EndoscopySpecimen (Source)Anatomical Location / LateralityCollection Method / VolumeCollection TimeReceived Time04/18/2022 12:00 PM EST Narrative 04/18/2022 12:00 PM EST PERFORMED AT [facility] LOCATION:[id number] repeat 10 years Procedure Note CONVERSION, GENERIC - 08/13/2022 PERFORMED AT [facility] LOCATION:[id number] repeat 10 years Authorizing ProviderResult TypeResult StatusJo-Ann Loera MDENDOSCOPY PROCEDURE ORDERABLESFinal Result from Last 3 Months or Most Recently Relevant to Health Maintenance Insurance Care Teams Team MemberRelationshipSpecialtyStart DateEnd Date Grzegorz Ahn MD [address] [place] [address] PCP - GeneralFamily Medicine12/01/24
--- OUTSIDE RECORDS SUMMARY | 2025-03-17 11:23 | XMS_ITS | Encounter Summary ---
Author Organization [facility] Address [address] [facility] [place] [address] Care Team Providers Care Front Office Attendant Name Role Phone Grzegorz Ahn MD Primary Care Provider [phone] Encounter Details DateTypeDepartmentCare Team (Latest Contact Info)Vhheozeogdo82/16/2025amboo flowsheet [facility] [address] [place] [address] Lonnie Bragg, PA [address] [place] [address] Social History Tobacco UseTypesPacks/DayYears UsedDateSmoking Tobacco: NeverPassive [...] relatives?Twice a week05/31/2023How often do you attend protestant or faith services?More than 4 times per year05/31/2023o you belong to any clubs or organizations such as protestant groups, unions, fraShook or athletic ines ups, or school groups?Yes05/31/2023How often do you attend meetings of the clubs or organizations you belong to?More than 4 times per year05/31/2023re you , , , , never , or living with a partner? Mwergwe0405/31/2023UDIT-CAnswerDate RecordedQ1: How often do you have a [...] heating?Not hard at all05/31/2023HQ-2AnswerDate RecordedPatient Health Questionnaire-2 Nziuo456Finst. [facility] [place] of Occupational Health - Occupational Stress QuestionnaireAnswerDate RecordedDo you feel stress - tense, restless, nervous, or anxious, or unable to sleep at night because yourmind is troubled all the time - these days?To some zlupce7405/31/2023Exercise Vital Sign AnswerDate RecordedOn average, how many [...] RecordedSex Assigned at BirthNot on file Legal YahZtoc5706/11/2022 6:49 PM EDTGender IdentityNot on fileSexual Orientation Not on filedocumented as of this encounter Plan of Treatment DateTypeDepartmentCare Team (Latest Contact Info)Eiwtmcwgfuv72/13/2026 1:15 PM ESTOffice Visit [facility] [address] [place] [address] Lonnie Bragg PA [address] [place] [address] 12/28/2025 8:00 AM EDTOffice Visit [facility] [address] [facility] [place] [address] Amanda Jaimes NP [address] [place] [address] documented as of this encounter Visit Diagnoses Not on filedocumented in this encounter Additional Health Concerns AssessmentNoted TimePHQ-9 Depression Total Score: 8:24 AM EDT documented as of this encounter Care Teams Team MemberRelationshipSpecialtyStart DateEnd Date Grzegorz Ahn MD [address] [place] [address] PCP - GeneralFamily Medicine12/01/24documented as of this encounter
--- OUTSIDE RECORDS SUMMARY | 2025-03-17 11:23 | XMS_ITS | Encounter Summary ---
Author Organization [facility] Address [id number] [place] [address] Care Team Providers Care Hand Ii Tube Bender Name Role Phone Jo-Ann Loera MD Primary Care Provider [phone] Encounter Details DateTypeDepartmentCare Team (Latest Contact Info)Edxhmxqiysp17/05/2025Travel Social History Tobacco UseTypesPacks/DayYears UsedDateSmoking Tobacco: NeverSmokeless Tobacco: NeverAlcohol UseStandard Drinks/WeekCommentsYes0 (1 standard drink = 0.6 oz pure alcohol)x3 a weekChildcareAnswerDate JkzvqjkjEsohxfewyLhicngz37/12/2019 EmploymentAnswerDate ZdlszxklAhimdyktplJtymmba19/12/2019Hunger ScreeningAnswer Date RecordedWithin the past 12 months we worried whether our food would run out before we got money to buy more.Never True03/03/2025Within the past 12 months the food we bought just didn't last and we didn't have money to get more.Never True03/03/2025Purpose - LifeAnswerDate RecordedPurpose and direction in life Ybqgvrz0504/12/2020ex and Gender InformationValueDate RecordedSex Assigned at VbtnxEwxa62/11/2021 2:00 PM EDTLegal XjsFrhk1411/02/2014 11:31 AM EDTGender TptcbzttMrir90/11/2021 2:00 PM EDTSexual IphkocvzfhoRjxzhilz89/11/2021 2:00 PM EDTdocumented as of this encounter Plan of Treatment Not on file documented as of this encounter Goals GoalPatient Goal TypeAssociated ProblemsRecent ProgressPatient-Stated?Author Autogenerated Goal Care PlanAutogenerated ProblemNoPotts, Elizabethdocumented as of this encounter Visit Diagnoses Not on filedocumented in this encounter Additional Health Concerns Active ProblemsNoted DateDiagnosed DateAutogenerated Sgjkowy0002/28/2025documented as of this encounter Care Teams Team MemberRelationshipSpecialtyStart DateEnd Date Wonderly, Jo-Ann Ventura MD [address] [place] [address] PCP - GeneralFamily Rjlbltgh86/4/23documented as of this encounter
--- OUTSIDE RECORDS SUMMARY | 2025-03-17 11:23 | XMS_ITS | Encounter Summary ---
Author Organization [facility] Address [address] [facility] [place] [address] Care Team Providers Care Grounds Keeper Name Role Phone Grzegorz Ahn MD Primary Care Provider [phone] Encounter Details DateTypeDepartmentCare Team (Latest Contact Info)Svthiprfqif75/08/2025Telephone [facility] [address] [place] [address] Grzegorz Ahn MD [address] [place], [place] [phone] Social History Tobacco UseTypesPacks/DayYears UsedDateSmoking Tobacco: NeverPassive [...] relatives?Twice a week05/31/2023How often do you attend scientology or christianity services?More than 4 times per year05/31/2023o you belong to any clubs or organizations such as scientology groups, unions, fraLet's Jock or athletic ines ups, or school groups?Yes05/31/2023How often do you attend meetings of the clubs or organizations you belong to?More than 4 times per year05/31/2023re you , , , , never , or living with a partner? Lgvxvhb9605/31/2023UDIT-CAnswerDate RecordedQ1: How often do you have a [...] heating?Not hard at all05/31/2023HQ-2AnswerDate RecordedPatient Health Questionnaire-2 Ywopb872Finthe [facility] [place] of Occupational Health - Occupational Stress QuestionnaireAnswerDate RecordedDo you feel stress - tense, restless, nervous, or anxious, or unable to sleep at night because yourmind is troubled all the time - these days?To some ccxawr9205/31/2023Exercise Vital Sign AnswerDate RecordedOn average, how many [...] RecordedSex Assigned at BirthNot on file Legal BemHxay6706/11/2022 6:49 PM EDTGender IdentityNot on fileSexual Orientation Not on filedocumented as of this encounter Miscellaneous Notes * Telephone Encounter - Melani Toth MA - 03/06/2025 3:16 PM EST Spoke with pt made aware, and voiced understanding. * Telephone Encounter - Amanda Jaimes NP - 03/06/2025 11:05 AM EST Has he tried anything for it like otc cortisone or hydrocortisone? He could try that. He may need adifferent brace if he is allergic to this one. * Telephone Encounter - Dionicio Zaman - 03/06/2025 10:03 AM EST Benjamin had Rotator cuff surgery- he has a rash on his armpit ,stomach and hip where brace is sitting. He said it is itching a lot. Should he come in for an appt or can something be called in for him? NEYDA Alexander [phone] documented in this encounter Plan of Treatment DateTypeDepartmentCare Team (Latest Contact Info)Tprarrtqlmf56/13/2026 1:15 PM ESTOffice Visit [facility] [address] [facility] [place] [address] Lonnie Bragg PA [address] [facility] [place] [address] 12/28/2025 8:00 AM EDTOffice Visit [facility] [address] [facility] [place] [address] Amanda Jaimes NP [address] [facility] [place], [place] [phone] documented as of this encounter Visit Diagnoses Not on filedocumented in this encounter Additional Health Concerns AssessmentNoted TimePHQ-9 Depression Total Score: 8:24 AM EDT documented as of this encounter Care Teams Team MemberRelationshipSpecialtyStart DateEnd Date Grzegorz Ahn MD [address] [facility] [place], [place] [phone] PCP - GeneralFamily Medicine12/01/24documented as of this encounter
--- OUTSIDE RECORDS SUMMARY | 2025-03-17 11:23 | XMS_ITS | Encounter Summary ---
Author Organization [facility] Address [address] [place] [address] Care Team Providers Care Switchboard Operator Receptionist Name Role Phone Jo-Ann Loera MD Unavailable [phone] Jo-Ann Loera MD Primary Care Provider [phone] Source Comments In the event this information is protected by the Federal Confidentiality of Alcohol and Drug AbusePatient Records regulations: The Federal rules restrict any use of the information to criminally investigate or prosecute any alcohol or drug abuse patient.[facility] Encounter Details DateTypeDepartmentCare Team (Latest Contact Info)Jvfkjdvczhp53/08/2025 Get Medical Advice [facility] [address] [place] [address] Iam Lee MD, PhD [address] [place] [address] Rescheduled infusion Social History Tobacco UseTypesPacks/DayYears UsedDateSmoking Tobacco: NeverSmokeless Tobacco: NeverAlcohol UseStandard Drinks/WeekCommentsYes3.6 (1 standard drink = 0.6 oz pure alcohol)PHQ-2AnswerDate RecordedPHQ-2 sgymb8475Area Deprivation IndexAnswerDate RecordedNational Score (1-100), lower number is lower risk76 12/04/2022State Score (1-10), lower number is lower wyyv831ata from: https://www.neighborhoodatlas.medicine.[facility].edu/. Last address used for kce[address] [facility] [address]Sex and Gender InformationValueDate RecordedSex Assigned at GwmmoVwqk36/04/2021 7:45 PM EDTLegal XesIymz1704/26/2020 5:02 PM ESTGender KdmzfzdtBpqa33/04/2021 7:45 PM EDTSexual OrientationStraight 07/31/2020 7:45 PM EDTdocumented as of this encounter Plan of Treatment DateTypeDepartmentCare Team (Latest Contact Info)Zslkzebqcku01/12/2026 8:00 AM ESTInfusion Center Multiple Sclerosis [address] [place] [address] OCREVUS (6 Month)04/10/2025 12:00 PM ESTOffice Visit [facility] for MS [address] [place] [phone] Jessica Armendariz, Research Coordinator DELIVER-MS Month 48 Visit04/10/2025 2:00 PM ESTAppointment Radiology [address] [place], [place] [phone] MRI BRAIN WO IVCON04/10/2025 2:40 PM ESTAppointment Radiology [address] [place], [place] [id number] MRI THORACIC SPINE WO IVCON04/11/2025 3:15 PM ESTDistance [address] [address] [place] Christie PA-C [address] [place], [place] [phone] f/udocumented as of this encounter Visit Diagnoses Not on filedocumented in this encounter Care Teams Team MemberRelationshipSpecialtyStart DateEnd Date Jo-Ann Loera MD PCP - GeneralFamily Luayclle45/7/21 Jo-Ann Loera Beth, MD ReferringFamily Medicine04/26/20documented as of this encounter
[2025-03-17 13:49] LABS: Free T3 2.36 pg/mL (2.18-3.98); Thyroid Stimulating Hormone 1.093 uIU/mL (0.358-3.740)
== END 2025-03-17 11:14 | disposition home or self-care (01) ==
LOC: LAB 11:19
PROVIDERS: PCP Family Medicine; Visit Provider Chiropractor
DX: E04.1 Nontoxic single thyroid nodule (principal)
CPT/HCPCS: 36415; 84439; 84443; 84481